=== PATIENT | female | born 1975 | race Caucasian/White ===

== ENCOUNTER → 2016-04-11 06:46 | Day surgery (SDC) | payer OTHER ==
[~2016-04-11 06:46] MED LIST: Buffered Lidocaine 1% SYR 3ML* 3 ML/SYR SYRINGE INTRADERM ONE; Buffered Lidocaine 1% SYR 3ML* 3 ML/SYR SYRINGE ONE; Bupivacaine 0.5% SDV PF* 30 ML VIAL ONE; Dexamethasone IV* 4 MG/ML 1 ML (4 MG) IV SLOW PU ONE; Dexamethasone IV* 4 MG/ML 1 ML (4 MG) ONE; DiMENhydriNATE IV* 50 MG/ML VIAL IV PUSH PRN; Famotidine IV* 10 MG/ML 2 ML (20 mg) IV ONE; Famotidine IV* 10 MG/ML 2 ML (20 mg) ONE; HYDROmorphone INJ* 1 MG/ML CARPUJECT SYRINGE ONE; Lidocaine 1% INJ* 10 MG/ML 30 ML SDV ONE; Midazolam* 1 MG/ML 2 ML VIAL (2 MG) ONE; ceFAZolin 2 GM PREMIX (*) 2 GM/50 ML BAG IVPB ONE; fentaNYL* 50 MCG/ML 2 ML VIAL (100 MCG VIAL) ONE; oxyCODONE TAB* 5 MG TAB ONE
[2016-04-11] MEDS: fentaNYL* 50 MCG/ML 2 ML VIAL (100 MCG VIAL) IV PRN ×4 (10:16→10:52)
[2016-04-11] MEDS: HYDROmorphone INJ* 1 MG/ML CARPUJECT SYRINGE IV PRN ×4 (10:18→10:58)
[2016-04-11 11:38] VITALS: BP 108/84
--- NOTE | 2016-04-11 13:49 | RAD ---
INDICATION: Trimalleolar fracture. COMPARISON: February 26, 2016 FINDINGS: 9 seconds of fluoroscopy were provided for the orthopedics department. Fluoroscopic spot imaging of the right ankle were obtained for operative control and show interval removal of the cortical plate and screws about the fibula and placement of 2 orthopedic screws at the level of the medial malleolus . CPT II Codes: 6045F (fluoro time doc)
--- NOTE | 2016-04-11 22:35 | OP ---
DATE OF OPERATION: 04/11/16 - SDS DATE OF : 73 SURGEON: Erasmo Leong MD POWER PLANT ENGINEER: MYKEL Quiñones ANESTHESIOLOGIST: Low Marks MD ANESTHESIA: General PRE-OP DIAGNOSES: Right painful hardware fibula, SPN neuroma, and nonunion medial malleolus. POST-OP DIAGNOSES: Right painful hardware fibula, SPN neuroma, and nonunion medial malleolus. OPERATIVE PROCEDURE: Removal of hardware, right fibula; decompression SPN nerve ; and ORIF, right medical malleolus. DESCRIPTION OF PROCEDURE: The patient was taken to the operating room, where a longitudinal incision was made over the distal fibula. We located the head of the small fragment screws to remove with appropriate screwdriver as well as the plate. In the anterior flap, the SPN nerve was intact, but entrapped and some scar at this level. Using a small Joshua scissors, we dissected around the nerve performing a neurolysis at this level and decompressing the fascia proximally. This wound was then irrigated and closed with 2-0 Vicryl and kike. Medially, a 5 cm incision was made over the medial malleolus. I exposed the anterior aspect of the ankle joint at the axilla by reflecting the capsule anteriorly. The nonunion was taken down with a [place] elevator, fibrous debris removed and then a small power jose luis used to freshen the bone surfaces. We then pinned the medial malleolus with paired 4.0 mm cancellous screws over washers, good compression was obtained and the x-ray verified satisfactory position of the hardware. We then irrigated the medial wound closing with Vicryl and kike and a compression dressing plaster was then applied. [id number]/[facility] #: [id number] [facility]
== END | disposition home or self-care (01) ==
LOC: OR 06:46
PROVIDERS: ATTEND Orthopaedic Surgery
DX: T84.84XA Pain due to internal orthopedic prosthetic devices, implants and grafts, initial encounter (principal); Y79.3 Surgical instruments, materials and orthopedic devices (including sutures) associated with adverse incidents; Y92.9 Unspecified place or not applicable; G57.31 Lesion of lateral popliteal nerve, right lower limb; S82.51XA Displaced fracture of medial malleolus of right tibia, initial encounter for closed fracture; W00.2XXA Other fall from one level to another due to ice and snow, initial encounter; Y93.9 Activity, unspecified; Y92.89 Other specified places as the place of occurrence of the external cause; Y99.0 Civilian activity done for income or pay; I10 Essential (primary) hypertension; F17.210 Nicotine dependence, cigarettes, uncomplicated; F41.9 Anxiety disorder, unspecified
CPT/HCPCS: 76000; 88300; A9270-GY; C1713; C1776; J0690; J1100; J1170; J2250; J3010

== ENCOUNTER 2016-06-06 23:41 | Emergency (ER) | payer OTHER ==
[2016-06-06 23:47] VITALS: BP 124/82
[2016-06-07] MEDS ORDERED: oxyCODONE/Acetamin 5/325 MG* TAB PO ONE ×2 (00:53→00:59)
--- NOTE | 2016-06-07 07:51 | RAD ---
INDICATION: Right ankle reinjury, previous fracture. COMPARISON: Comparison is made with prior x-ray studies of the right ankle from September 02, 2015, February 26, 2016 and June 02, 2016. TECHNIQUE: 3 views of the right ankle were obtained. FINDINGS: There is diffuse soft tissue swelling present. Postsurgical changes are noted in the distal fibula. There has been removal of a metallic plate and multiple surgical screws. There are 2 surgical screws spanning a chronic fracture of the medial malleolus. One of the surgical screws is fractured and unchanged from the prior study. No new osseous fracture is seen. Joint spaces appear maintained. IMPRESSION: POSTSURGICAL CHANGES AND CHRONIC FRACTURE OF THE MEDIAL MALLEOLUS TRANSFIXED WITH 2 SURGICAL SCREWS. ONE OF THE SURGICAL SCREWS IS FRACTURED AND UNCHANGED FROM THE PRIOR EXAM. NO NEW OSSEOUS FRACTURE IS SEEN.
--- NOTE | 2016-06-08 01:42 | ED ---
Lower Extremity - HPI Summary HPI Summary: Patient with recent hx of multiple left ankle fractures arrives s/p fall in the shower with left ankle pain. She states she sustained a tri-mal fracture several months ago with repaif. After re-injuring the ankle, xray showed one of the screws was broke. She is to follow up tmw with a CT scan, but arrives today after re-injuring it again. She has been on crutches since the original injury. Today, ankle is swollen with ecchymosis over lateral L ankle. Denies numbness or tingling. Pulses intact bilaterally. - History of Current Complaint Chief Complaint: EDExtremityLower Stated Complaint: RIGHT FOOT PAIN Time Seen by Provider: 06/06/16 23:59 Hx Obtained From: Patient Hx Last Menstrual Period: ALL MONTH OF SEPTEMBER Mechanism Of Injury: Fall From A Standing Position Onset of Pain: Immediate Onset/Duration: Minutes Severity Initially: Moderate Severity Currently: Moderate Pain Intensity: 7 Pain Scale Used: 0-10 Numeric Timing: Constant Location: Is Discrete @ - left ankle - lateral side Character Of Pain: Sharp Associated Signs And Symptoms: Positive: Swelling, Bruising Aggravating Factor(s): Standing, Ambulation Alleviating Factor(s): Rest Able to Bear Weight: No - Risk Factors Gout Risk Factors: Age Over 40 DVT Risk Factors: Other: - recent injury Septic Arthritis Risk Factor: Pre-existing Joint Disease - Allergies/Home Medications Allergies/Adverse Reactions: Allergies Allergy/AdvReac Type Severity Reaction Status Date / Time Morphine AdvReac Pain Verified 04/11/16 07:09 PMH/Surg Hx/FS Hx/Imm Hx Previously Healthy: Yes Endocrine/Hematology History: Denies: Hx Anticoagulant Therapy, Hx Diabetes, Hx Thyroid Disease Cardiovascular History: Reports: Hx Hypertension - ON MEDICATION FOR Denies: Hx Congestive Heart Failure, Hx Pacemaker/ICD, Other Cardiovascular Problems/Disorders Respiratory History: Denies: Hx Asthma, Hx Chronic Obstructive Pulmonary Disease (COPD), Hx Lung Cancer, Other Respiratory Problems/Disorders GI History: Denies: Hx Gall Bladder Disease, Hx Gastrointestinal Bleed, Hx Ulcer, Hx Urosepsis, Other GI Disorders History: Denies: Hx Kidney Stones, Hx Renal Disease Comment Only: Other Problems/Disorders - OVARIAN CYSTS LT OVARY REMOVED Sensory History: Denies: Hx Contacts or Glasses, Hx Hearing Aid Opthamlomology History: Denies: Hx Contacts or Glasses Neurological History: Denies: Hx Dementia, Hx Migraine, Hx Seizures, Hx Transient Ischemic Attacks (TIA), Other Neuro Impairments/Disorders Psychiatric History: Reports: Hx Anxiety - PRN XANAX FOR Denies: Hx Depression, Hx Panic Disorder, Hx Schizophrenia, Hx Bipolar Disorder, Hx Substance Abuse - Surgical History Surgery Procedure, Year, and Place: TRIMALLEOLAR FX RIGHT ANKLE REPAIR 07/24. 1994 LT OOPHERECTOMY. [id number] Gall bladder out;2005 tubal ligation; 1998 bilat ankles TENDON LENGHTENING at age 6. HYSTERECTOMY 2014 Hx Anesthesia Reactions: No - Immunization History Date of Tetanus Vaccine: 2011 Date of Influenza Vaccine: 2014 Infectious Disease History: No Infectious Disease History: Denies: Hx Clostridium Difficile, Hx Hepatitis, Hx Human Immunodeficiency Virus (HIV), Hx of Known/Suspected MRSA, Hx Shingles, Hx Tuberculosis, Hx Known/ Suspected VRE, Hx Known/Suspected VRSA, History Other Infectious Disease, Traveled Outside the [place] in Last 30 Days - Family History Known Family History: Positive: None, Cardiac Disease - [place] - Social History Occupation: Unemployed Lives: With Family Alcohol Use: Occasionally Alcohol Amount: 1-2 PER WEEK Substance Use Type: Reports: None Hx Tobacco Use: Yes Smoking Status (MU): Heavy Every Day Tobacco Smoker Type: Cigarettes Amount Used/How Often: 1/2-1 PPD X 15 +YEARS Length of Time of Smoking/Using Tobacco: 20 years Have You Smoked in the Last Year: Yes Review of Systems Constitutional: Negative Cardiovascular: Negative Respiratory: Negative Positive: no symptoms reported, see HPI Positive: Arthralgia - left ankle pain - chronic d/t injury Positive: Bruising - ecchymosis over ATFL Neurological: Negative Positive: Anxious All Other Systems Reviewed And Are Negative: Yes Physical Exam - Summary Physical Exam Summary: Thorough physical exam was performed, focusing on ankle special tests. Pain on palpation over lateral aspect and superior aspect of ankle over ATFL and deltoid ligaments. No pain on palpation over medial side. Due to patient pain around injury, physical exam was limited. Unable to perform anterior drawer test or talar tilt test d/t pain. Burnett test negative. Limited ROM. Dorsiflexion, great toe extension and plantar flexion intact however limited. No pain on palpation over medial or lateral lower extremity. No pain with knee flexion. Pulses intact bilaterally. No temperature change or pallor noted bilaterally. Ecchymosis and swelling noted on lateral aspect. No lesion or disruption of skin is seen. Unable to bear weight. Triage Information Reviewed: Yes Vital Signs On Initial Exam: Initial Vitals Temp Pulse Resp BP Pulse Ox 98.0 F 64 16 124/82 100 06/06/16 23:43 06/06/16 23:43 06/06/16 23:43 06/06/16 23:43 06/06/16 23:43 Vital Signs Reviewed: Yes Appearance: Positive: Well-Nourished, Pain Distress Skin: Positive: Warm, Skin Color Reflects Adequate Perfusion Eyes: Positive: Normal, EOMI, RICH Neck: Positive: Nontender Respiratory/Lung Sounds: Positive: Clear to Auscultation, Breath Sounds Present Cardiovascular: Positive: Normal Diagnostics - Vital Signs Vital Signs Temp Pulse Resp BP Pulse Ox 06/06/16 23:43 98.0 F 64 16 124/82 100 - Laboratory Lab Statement: Any lab studies that have been ordered have been reviewed, and results considered in the medical decision making process. Lower Extremity Course/Dx - Course Course Of Treatment: Based on Harmon Ankle Rules, patient sent to imaging. Xray negative for new fracture or other acute findings. Patient with multiple previous fractures with placement of 2 screws with 1 broken. Soft tissue swelling noted over the lateral aspect of the ankle. Medial and lateral distal lower extremity without pain and x-rays show no widening of the ankle joint regarding low suspicion for Maisonneuve fx. Patient will follow up with CT scan as scheduled tomorrow. Ankle was ligia wrapped to patient comfort to allow for immobilization for this period of time. Patient given orthopedic follow up for 2 days. Encouraged Ibuprofen 600mg three times daily with meals for pain. Return precautions given. Educated patient regarding ankle injuries and healing time and the possibility of further evaluation and imaging as orthopedist sees fit. Patient has oxycodone at home for pain medication. - Diagnoses Differential Diagnosis/HQI/PQRI: Positive: Compartment Syndrome, Fracture ( Closed), Fracture (Open), Strain Provider Diagnoses: Left ankle injury Discharge - Discharge Plan Condition: Stable Disposition: HOME Referrals: Ethan Juarez MD [Primary Care Provider] - Additional Instructions: Follow up for CT tomorrow. Follow up with your physician on Monday. Discharge: Crutches for ambulation. Ibuprofen 600mg three times daily with meals for pain. Take on opposite schedule of oxycodones. Follow up with orthopedic physician. If numbness, tingling, decreased sensation, increased pain, temperature changes or pallor noted in toes, come back to ER immediately. Protect the area. For your comfort level, do not bear weight, pull or push until you can injury is somewhat healed. This may involve the need for immobilization or crutches for a period of time. Rest the involved area, but not too long. You may need to be off your injury for some time to allow for healing, however excessive immobilization of joints can lead to stiffness and delay healing time. Early mobilization is encouraged if it is pain-free. Ice. Not directly on the skin. Cover with a towel. Apply ice no more than 30 minutes at a time Compression: You may use and keep an ligia wrap bandage over the injury to decrease swelling. Again, this should be limited and be taken off periodically to encourage early range of motion and mobilization. Elevate: Try to elevate the injured area above the heart whenever possible.
== END 2016-06-07 01:17 | disposition home or self-care (01) ==
LOC: ED 23:41
DX: M25.571 Pain in right ankle and joints of right foot (principal); M79.671 Pain in right foot; F17.210 Nicotine dependence, cigarettes, uncomplicated; I10 Essential (primary) hypertension; Z88.5 Allergy status to narcotic agent; S82.51XS Displaced fracture of medial malleolus of right tibia, sequela; W19.XXXA Unspecified fall, initial encounter; Y93.E1 Activity, personal bathing and showering; Y92.9 Unspecified place or not applicable
CPT/HCPCS: 99282; A9270-GY

== ENCOUNTER → 2016-07-18 09:43 | Day surgery (SDC) | payer OTHER ==
--- NOTE | 2016-07-15 17:30 | HP ---
PREOPERATIVE HISTORY AND PHYSICAL: DATE OF ADMISSION: 07/18/16 PROVIDER: Dr. Erasmo Leong. CHIEF COMPLAINT: Ongoing right ankle pain. HISTORY OF PRESENT ILLNESS: Paulina is a 40-year-old female who has been followed by Dr. Leong for ongoing right ankle pain. She recently underwent revision of a medial malleolus fracture nonunion. She was found to have broken screws at her most recent appointment and again a nonunion. She has elected to proceed with revision of medial malleolar fracture fixation. PAST MEDICAL HISTORY: Hypertension, complex regional pain syndrome. PAST SURGICAL HISTORY: Right ankle medial malleolus ORIF, right ankle lateral malleolus ORIF. She reports no complications with anesthesia with those procedures. CURRENT MEDICATIONS: 1. Oxycodone 5 mg 1 tab every 4 to 6 hours as needed for pain. 2. Ibuprofen 800 mg 1 tab p.o. t.i.d. p.r.n. pain. 3. Lisinopril 5 mg one p.o. q. day. 4. Chantix 1 mg as directed. 5. Nifedical XL 30 mg 1 p.o. q. day. 6. Alprazolam 0.5 mg 1 p.o. t.i.d. p.r.n. 7. Atenolol 25 mg 1 p.o. q. day. ALLERGIES: MORPHINE; she reports that MORPHINE makes her pain worse. SOCIAL HISTORY: The patient is not currently working. She smokes half a pack of cigarettes per day. She does not consume alcohol. She does not exercise regularly. REVIEW OF SYSTEMS: Constitutional: Negative for recent hospitalization, fevers , chills, night sweats, or weight loss. Head: Negative for headache, lightheadedness, or balance problems. Cardiovascular: Negative for chest or arm pain with exertion, history of heart attack, heart murmur. Positive for high blood pressure. Negative for embolism, or deep vein thrombosis. Respiratory: Negative for chronic cough, shortness of breath with exertion, asthma, or COPD. Gastrointestinal: Negative for heartburn, nausea, vomiting, diarrhea, constipation, or GERD. Genitourinary: Negative for nighttime urination, frequency of urination, urinary tract infections or kidney problems. Musculoskeletal: Positive for ankle fracture. Negative for chronic back pain. Skin: Negative for rashes, lesions, lumps, or sores. Neurologic: Negative for seizure, stroke, epilepsy, or depression. Positive for anxiety. Endocrine: Negative for diabetes or thyroid problems. Hematology: Negative for easy bleeding, bruising, or anemia. PHYSICAL EXAMINATION GENERAL: She is a well-developed, well-nourished female, in no acute distress at rest. She is alert and oriented x3 with appropriate mood and affect. VITAL SIGNS: The patient is 5 feet 7 inches, 180 pounds. Blood pressure 140/ 115, pulse of 100, respirations 20, temperature 97.6. HEENT: Normocephalic, atraumatic. Hearing and vision are grossly intact. NECK: Her trachea is midline. RESPIRATORY: Lungs clear to auscultation bilaterally. No wheezes, rales, or rhonchi. CARDIOVASCULAR: Regular rate and rhythm. No murmurs, rubs, or gallops. Normal S1, S2. ABDOMEN: Soft, nondistended, nontender. Normal bowel sounds. EXTREMITIES: Exam of the right lower extremity, incision is well healed to the medial aspect of ankle. She continues to have some persistent swelling. She is tender to palpation over the medial malleolus over the dorsum of her foot. She has limited hindfoot range of motion secondary to stiffness. Sensation to light touch is intact. She has 2+ dorsalis pedis pulse. IMPRESSION: Right ankle medial malleolus fracture nonunion with broken screws. PLAN: The patient is to undergo right ankle revision fixation of medial malleolus by Dr. Leong on 07/18/16. The risks, benefits, and postoperative course were discussed with the patient at length. She is understanding. She needs to be strictly nonweightbearing after her surgery. All of her questions were answered to her full satisfaction. We will follow up the patient in the postoperative phase. MYKEL WATERS [id number]/[facility] #: [id number] FABIANA
[~2016-07-18 09:43] MED LIST changes: +Acetaminophen IV 1GM/100ML * 1,000 MG/100 ML VIAL IVPB ONE; +Acetaminophen IV 1GM/100ML * 100 ML ONE; -Buffered Lidocaine 1% SYR 3ML* 3 ML/SYR SYRINGE INTRADERM ONE; -Buffered Lidocaine 1% SYR 3ML* 3 ML/SYR SYRINGE ONE; +Buffered Lidocaine 1% SYRIN* 3 ML/SYR SYRINGE INTRADERM ONE; -DiMENhydriNATE IV* 50 MG/ML VIAL IV PUSH PRN; -HYDROmorphone INJ* 1 MG/ML CARPUJECT SYRINGE ONE; +HYDROmorphone* 1 MG/ML 1 ML SYR IV SLOW PU PRN; +HYDROmorphone* 1 MG/ML 1 ML SYR ONE; +Ketorolac INJ* 30 MG/ML 1 ML VIAL ONE; -Lidocaine 1% INJ* 10 MG/ML 30 ML SDV ONE; +Lidocaine 2% PF* 5 ML VIAL ONE; -Midazolam* 1 MG/ML 2 ML VIAL (2 MG) ONE; +Midazolam* 1 MG/ML 5 ML VIAL (5 MG) ONE; +Ondansetron INJ* 2 MG/ML VIAL ONE; +PROCHLORPERAZINE INJ 5 MG/ML 2 ML VIAL IV PRN; +Propofol* 10 MG/ML 20 ML BTL IV PUSH ONE; -ceFAZolin 2 GM PREMIX (*) 2 GM/50 ML BAG IVPB ONE; +ceFAZolin 2 GM PREMIX(*) 2 GM/50 ML BAG IVPB ONE; +fentaNYL* 50 MCG/ML 5 ML VIAL (250 MCG VIAL) ONE; +oxyCODONE TAB* 5 MG TAB PO ONE; +oxyCODONE/Acetamin 5/325 MG* TAB ONE
[2016-07-18] MEDS: oxyCODONE/Acetamin 5/325 MG* TAB PO PRN ×2 (11:50→11:53)
[2016-07-18] MEDS: fentaNYL* 50 MCG/ML 2 ML VIAL (100 MCG VIAL) IV PRN ×5 (11:50→12:16)
[2016-07-18] MEDS: HYDROmorphone* 1 MG/ML 1 ML SYR IV SLOW PU PRN ×2 (12:24→12:39)
[2016-07-18 16:23] VITALS: BP 128/76
--- NOTE | 2016-07-19 12:52 | OP ---
DATE OF OPERATION: 07/18/16 - [facility] DATE OF : 73 ATTENDING SURGEON: Erasmo Leong MD GREENHOUSE SUPERINTENDENT: Ember Husain PA-C ANESTHESIOLOGIST: Donn Parikh MD ANESTHESIA: General PRE-OP DIAGNOSIS: Failure fixation nonunion right medial malleolus fracture. POST-OP DIAGNOSIS: Failure fixation nonunion right medial malleolus fracture. OPERATIVE PROCEDURE: Revision of right medial malleolus fracture fixation. DESCRIPTION OF PROCEDURE: The patient was taken to the operating room where a longitudinal incision was made over the medial malleolus. Anterior and posterior flap was raised to allow visualization of the hardware which was removed with small fragment screw farm truck driver, the washers and take down the fracture fragment itself. Part of the broken small fragment screw was well within the distal tibia and was left alone. We used a power bur to freshen the bony surfaces for the repeat fixation. We fixed the bone firmly with a one- third tubular plate which was bent over in a hook style. Compression dressing applied from the medial side as well as the distal side. X-rays intraoperatively showed satisfactory alignment of the fracture fixation and the malleolus fracture. We irrigated thoroughly closing with Vicryl and kike and a compression dressing and plaster splint. [id number]/[facility] #: [id number] [facility]
--- NOTE | 2016-07-19 18:00 | RAD ---
CPT II Codes: 6045F INDICATION: Right ankle fixation TECHNIQUE: Intraoperative fluoroscopy was provided during right ankle ORIF. FINDINGS: 3 spot films depict plate and screw fixation overlying the tibial malleolus. Fluoroscopy time: 4 seconds IMPRESSION: As above.
== END | disposition home or self-care (01) ==
LOC: OR 09:43
PROVIDERS: ATTEND Orthopaedic Surgery
DX: S82.51XK Displaced fracture of medial malleolus of right tibia, subsequent encounter for closed fracture with nonunion (principal); F17.210 Nicotine dependence, cigarettes, uncomplicated; I10 Essential (primary) hypertension; G90.50 Complex regional pain syndrome I, unspecified; Y99.9 Unspecified external cause status; Y92.9 Unspecified place or not applicable
CPT/HCPCS: 76000; 87070; 87073; 87205; 88300; A9270-GY; C1713; C1776; J0690; J1100; J1170; J1885; J2250; J2405; J2704; J3010

== ENCOUNTER 2017-02-05 20:44 | Emergency (ER) | payer OTHER ==
[2017-02-05 20:51] VITALS: BP 134/99
--- NOTE | 2017-02-05 20:57 | UC ---
Complaint Female HPI - HPI Summary HPI Summary: 41 year old female presents with severe right cva and urinary frequency/ urgency. - History Of Current Complaint Chief Complaint: UCGU Stated Complaint: FREQUENT URINATION Time Seen by Provider: 02/05/17 20:53 Hx Obtained From: Patient Hx Last Menstrual Period: ALL MONTH OF SEPTEMBER Onset/Duration: Sudden Onset Timing: Lasting Hours Severity Initially: Moderate Severity Currently: Moderate - Allergies/Home Medications Allergies/Adverse Reactions: Allergies Allergy/AdvReac Type Severity Reaction Status Date / Time Morphine AdvReac Severe Pain Verified 02/05/17 20:51 Home Medications: Home Medications Metoprolol Tartrate TAB* [Lopressor TAB*] 02/05/17 [History] PMH/Surg Hx/FS Hx/Imm Hx Previously Healthy: Yes Other History Of: Negative For: Anticoagulant Therapy - Surgical History Surgical History: Yes Surgery Procedure, Year, and Place: TRIMALLEOLAR FX RIGHT ANKLE REPAIR 07/24. 1994 LT OOPHERECTOMY. [id number] Gall bladder out;2005 tubal ligation; 1998 , bilat ankles TENDON LENGHTENING at age 6. april 2016 right ankle repair , hysterectomy approx 2014. HYSTERECTOMY 2013 - Family History Known Family History: Positive: None, Cardiac Disease - [place] - Social History Alcohol Use: Occasionally Alcohol Amount: "couple times a month" Substance Use Type: None Smoking Status (MU): Current Every Day Smoker Type: Cigarettes Amount Used/How Often: 1 PPD Length of Time of Smoking/Using Tobacco: 20 years Have You Smoked in the Last Year: Yes Household Exposure Type: Cigarettes Review of Systems Constitutional: Negative Skin: Negative Eyes: Negative ENT: Negative Respiratory: Negative Cardiovascular: Negative Gastrointestinal: Negative Genitourinary: Dysuria, Frequency, Urgency Motor: Negative Neurovascular: Negative Musculoskeletal: Negative Neurological: Negative Psychological: Negative All Other Systems Reviewed And Are Negative: Yes Physical Exam Triage Information Reviewed: Yes Vital Signs: Initial Vital Signs Temp 36.7 C 02/05/17 20:48 Pulse 92 02/05/17 20:48 Resp 16 02/05/17 20:48 BP 134/99 02/05/17 20:48 Pulse Ox 99 02/05/17 20:48 Vital Signs Reviewed: Yes Eye Exam: Normal ENT Exam: Normal Dental Exam: Normal Neck exam: Normal Neck: Positive: 1 Respiratory Exam: Normal Cardiovascular Exam: Normal Abdomen Description: Positive: CVA Tenderness (R) Musculoskeletal Exam: Normal Neurological Exam: Normal Psychological Exam: Normal Skin Exam: Normal Complaint Female Dx - Differential Dx/Diagnosis Provider Diagnoses: right cva tenderness. urinary frequency. urinary urgency Discharge - Discharge Plan Condition: Stable Disposition: HOME Prescriptions: Sulfamethox/Trimethoprim DS* [Bactrim DS 800/160 TAB*] 1 tab PO BID #14 tab Patient Education Materials: Urinary Tract Infection in Women (ED) Referrals: Ethan Juarez MD [Primary Care Provider] -
[2017-02-05] MEDS ORDERED: cefTRIAXone VIAL(*) 1,000 MG VIAL ONE (21:11)
[2017-02-05] MEDS ORDERED: cefTRIAXone VIAL(*) 1,000 MG VIAL IM ONE (21:12)
--- NOTE | 2017-02-07 16:55 | ED ---
Progress - Progress Note Progress Note: NO CHANGE. Course/Dx - Diagnoses Provider Diagnoses: UTI (urinary tract infection)
== END 2017-02-05 21:30 | disposition home or self-care (01) ==
LOC: UCEAST 20:44
DX: R30.0 Dysuria (principal); R35.0 Frequency of micturition; R39.15 Urgency of urination; Z88.5 Allergy status to narcotic agent; F17.210 Nicotine dependence, cigarettes, uncomplicated
CPT/HCPCS: 81003; 87086; 96372; 99212; G0463; J0696

== ENCOUNTER 2017-02-22 18:40 | Emergency (ER) | payer OTHER ==
[2017-02-22 18:53] VITALS: BP 139/86
[2017-02-22] MEDS ORDERED: Ketorolac INJ* 60 MG/2 ML VIAL IM ONE (19:27)
--- NOTE | 2017-02-22 21:46 | UC ---
Susan Appiah Thomas, scribed for Shawn Escalante MD on 02/22/17 at 1926 . Ear Complaint HPI - HPI Summary HPI Summary: The pt is a 41 y/o F presenting to Urgent Care c/o right ear pain for the last two days that has worsened today. The pain radiates down her right-sided jaw. The pain is constant. The pain is rated 7/10. Pt denies fevers and chills. She has not been swimming the last two weeks. - History of Current Complaint Chief Complaint: UCEar Stated Complaint: EAR PAIN Time Seen by Provider: 02/22/17 19:12 Hx Obtained From: Patient Hx Last Menstrual Period: ALL MONTH OF SEPTEMBER Onset/Duration: Lasting Days - 2, Still Present, Worse Since - today Severity Currently: Moderate Pain Intensity: 7 Pain Scale Used: 0-10 Numeric Aggravating Factors: Nothing Alleviating Factors: Nothing Related History: Other (Noted In Comments) - Frequent Q-tip use, No recent swimming - Allergies/Home Medications Allergies/Adverse Reactions: Allergies Allergy/AdvReac Type Severity Reaction Status Date / Time Morphine AdvReac Severe Pain Verified 02/22/17 18:54 PMH/Surg Hx/FS Hx/Imm Hx Previously Healthy: No - NEGATIVE: [place], COPD Other History Of: Negative For: Anticoagulant Therapy - Surgical History Surgical History: Yes Surgery Procedure, Year, and Place: TRIMALLEOLAR FX RIGHT ANKLE REPAIR 07/24. 1994 LT OOPHERECTOMY. [id number] Gall bladder out;2005 tubal ligation; 1998 , bilat ankles TENDON LENGHTENING at age 6. april 2016 right ankle repair , hysterectomy approx 2015. HYSTERECTOMY 2013 - Family History Known Family History: Positive: Cardiac Disease - [place] - Social History Alcohol Use: Occasionally Alcohol Amount: "couple times a month" Substance Use Type: None, Marijuana Smoking Status (MU): Light Every Day Tobacco Smoker Type: Cigarettes Amount Used/How Often: 1 PPD Length of Time of Smoking/Using Tobacco: 20 years Have You Smoked in the Last Year: Yes Household Exposure Type: Cigarettes Review of Systems Constitutional: Other - NEGATIVE: fever ENT: Ear Ache - right Is Patient Immunocompromised?: No All Other Systems Reviewed And Are Negative: Yes Physical Exam Triage Information Reviewed: Yes Vital Signs: Initial Vital Signs Temp 98.6 F 02/22/17 18:50 Pulse 122 02/22/17 18:50 Resp 18 02/22/17 18:50 BP 139/86 02/22/17 18:50 Pulse Ox 98 02/22/17 18:50 Vital Signs Reviewed: Yes - Additional Comments VITAL SIGNS: Reviewed. GENERAL: Patient is a well developed and nourished female who is lying comfortable in the stretcher. Patient is not in any acute respiratory distress. HEAD AND FACE: Normocephalic EYES: PERRLA, EOMI x 2. EARS: Hearing grossly intact. The ear canal is swollen without any discharge. There is tenderness upon palpation. MOUTH: Oropharynx within normal limits. NECK: Supple, trachea is midline, no adenopathy, no JVD, no carotid bruit. CHEST: Symmetric, no tenderness at palpation LUNGS: Clear to auscultation bilaterally. No wheezing or crackles. CVS: Regular rate and rhythm, S1 and S2 present, no murmurs or gallops appreciated. ABDOMEN: Soft, non-tender. Bowel sounds are normal. No abdominal abnormal pulsations. EXTREMITIES: Full ROM in all major joints, no edema, no cyanosis or clubbing. NEURO: Alert and oriented x 3. No acute neurological deficits. Speech is normal and follows commands. SKIN: Dry and warm Ear Complaint Course/Dx - Course Course Of Treatment: The pt is a 41 y/o F presenting to Urgent Care c/o right ear pain for the last two days that has worsened today. Patient denies fevers and chills. She has not been swimming the last two weeks. The ear canal is swollen without any discharge. It is tender to palpation. The patient is diagnosed with otitis externa and given a prescription for Floxin. She was instructed not to use any more Q-tips. She will follow up with her primary care provider. - Differential Dx/Diagnosis Provider Diagnoses: Otitis externa. Discharge - Discharge Plan Condition: Stable Disposition: HOME Prescriptions: Ofloxacin 0.3% OTIC.CHANDRIKA* [Floxin 0.3% OTIC.CHANDRIKA*] 4 drop .SEE ORDER BID #1 [id number] Patient Education Materials: Otitis Externa (ED) Referrals: Ethan Juarez MD [Primary Care Provider] - 7 Days Additional Instructions: DO NOT USE Q-TIPS ON THE INSIDE OF YOUR EAR. DO NOT STICK ANYTHING INSIDE YOUR EARS. Follow up with your primary care provider at your appointment next week. Return to urgent care for any new or worsening symptoms. The documentation as recorded by the Susan motta Thomas accurately reflects the service I personally performed and the decisions made by me, Shawn Escalante MD.
== END 2017-02-22 19:45 | disposition home or self-care (01) ==
LOC: UCEAST 18:40
DX: H60.91 Unspecified otitis externa, right ear (principal); Z72.0 Tobacco use
CPT/HCPCS: 96372; 99212; G0463; J1885

== ENCOUNTER 2017-03-20 17:35 | Emergency (ER) | payer OTHER ==
[2017-03-20 18:18] VITALS: BP 150/103
--- NOTE | 2017-03-20 19:38 | UC ---
Skin Complaint HPI - HPI Summary HPI Summary: Pt presents with left great toe pain. She tells me that about 4 months ago she underwent a minor surgical procedure in the oil well logger's office to remove the skin folds from around the nails of her left and right great toes. She had this done due to reoccurring infections and paronychia. She has not had any issues until recently. Over the last two days she has had pain in her left great toe with redness and swelling. She denies fever, chills, SOB, chest pain, open wound , or drainage from the site. - History of Current Complaint Chief Complaint: UCLowerExtremity Time Seen by Provider: 03/20/17 19:38 Stated Complaint: TOE INJURY Hx Obtained From: Patient Hx Last Menstrual Period: ALL MONTH September Onset/Duration: Gradual Onset Onset Severity: Mild Current Severity: Mild Pain Intensity: 4 Pain Scale Used: 0-10 Numeric - Allergy/Home Medications Allergies/Adverse Reactions: Allergies Allergy/AdvReac Type Severity Reaction Status Date / Time Morphine AdvReac Severe Pain Verified 02/22/17 18:54 Review of Systems Constitutional: Negative Skin: Other - Pain left great toe. Redness left great toe. Respiratory: Negative Cardiovascular: Negative Neurovascular: Negative Musculoskeletal: Negative All Other Systems Reviewed And Are Negative: Yes PMH/Surg Hx/FS Hx/Imm Hx Previously Healthy: Yes Cardiovascular History: Cardiac Disease, Hypertension Other History Of: Negative For: Anticoagulant Therapy - Surgical History Surgical History: Yes Surgery Procedure, Year, and Place: TRIMALLEOLAR FX RIGHT ANKLE REPAIR 07/24. 1994 LT OOPHERECTOMY. [id number] Gall bladder out;2005 tubal ligation; 1998 , bilat ankles TENDON LENGHTENING at age 6. april 2016 right ankle repair , hysterectomy approx 2015. HYSTERECTOMY 2013 - Family History Known Family History: Positive: None, Cardiac Disease - [place] - Social History Occupation: Employed Full-time Lives: With Family Alcohol Use: Occasionally Alcohol Amount: "couple times a month" Substance Use Type: None, Marijuana Smoking Status (MU): Light Every Day Tobacco Smoker Type: Cigarettes Amount Used/How Often: 1 PPD Length of Time of Smoking/Using Tobacco: 20 years Have You Smoked in the Last Year: Yes Household Exposure Type: Cigarettes Physical Exam Triage Information Reviewed: Yes Appearance: Well-Appearing, Well-Nourished Vital Signs: Initial Vital Signs Temp 97.9 F 03/20/17 18:15 Pulse 106 03/20/17 18:15 Resp 18 03/20/17 18:15 BP 150/103 03/20/17 18:15 Pulse Ox 100 03/20/17 18:15 Vital Signs Reviewed: Yes Respiratory: Positive: Chest non-tender, Lungs clear Cardiovascular: Positive: RRR, Pulses Normal Musculoskeletal: Positive: Strength Intact, ROM Intact, No Edema Psychological: Positive: Age Appropriate Behavior Skin: Positive: Other - Left great toe: Mild erythema on the dorsal medial aspect of the left great toe along the nail. TTP medial > lateral. No discharge was able to be expressed. Mild edema medial > lateral. Course/Dx - Course Course Of Treatment: Paronychia left great toe. I advised her to schedule a follow up with her oil well logger. Rx for Keflex for mild cellulitis and paronychia. Try a lidocaine cream for pain relief. High BP today - She did take her BP medication this morning but this is an ongoing issue with her. Her PCP is aware and she has had an extensive workup including an ECG, stress test, and echos - per pt. Today she has no dizziness, headaches, or vision changes. I advised her to follow up with her PCP within 2 weeks. - Differential Diagnoses - Skin Complaint Differential Diagnoses: Cellulitis, MRSA - Diagnoses Provider Diagnoses: Paronychia left great toe Discharge - Discharge Plan Condition: Stable Disposition: HOME Prescriptions: Cephalexin CAP* [Keflex CAP*] 500 mg PO BID #20 cap Lidocaine 2% JELLY* 1 applic TOPICAL BID PRN #1 tube PRN Reason: Pain Patient Education Materials: Paronychia (ED) Referrals: Ethan Juarez MD [Primary Care Provider] - 1 Week Additional Instructions: If you develop a fever, SOB, chest pain, new or worsening symptoms - please call your PCP or go to the ED. Your blood pressure was high at todays visit. Please see your primary provider within 2 weeks for recheck and re-evaluation. Continue with salt water soaks of the toe. Please schedule a follow up with your PCP or new oil well logger within 7-10 days for further evaluation.
== END 2017-03-20 20:11 | disposition home or self-care (01) ==
LOC: UCEAST 17:35
DX: L03.032 Cellulitis of left toe (principal); I10 Essential (primary) hypertension; F17.210 Nicotine dependence, cigarettes, uncomplicated; Z88.5 Allergy status to narcotic agent
CPT/HCPCS: 99212; G0463

== ENCOUNTER 2017-05-11 14:44 | Observation (INO) | payer OTHER ==
--- OUTSIDE RECORDS SUMMARY | 2017-05-11 15:37 | XMS REPORT ---
:1975 External Reference #:[id number] Author Organization [facility] Address [address] [address] Phone [phone] Care Team Providers Name Role Phone Ethan Juarez MD Primary Care Physician Unavailable Payers Type Date Identification Numbers Payment Provider Subscriber Commercial Policy Number: [id number] [employer] Medicaid Izabela Wagner PayID: [id number] [address] [address] [place] [address] Workers Compensation Effective: Policy Number: State Insurance Izabela A 2016 [id number] Fund Candea Onset: 2015 Group Number: [id number] [address] [address] Group Name: [id number] [place] [address] PayID: [facility] Workers Compensation Expires: Policy Number: State Insurance Izabela A 2016 [id number] Fund Candea Onset: 2015 Group Name: [id number] [address] [address] PayID: [place] [address] Workers Compensation Effective: Policy Number: State Insurance Izabela A 2015 [id number] Fund Candea Expires: 2015 Group Name: [id number] [address] [address] Onset: 2015 PayID: [id number] [place] [address] Workers Compensation Expires: Policy Number: State Insurance Izabela A 2015 [id number] Fund Candea Onset: 2015 Group Name: [id number] [address] [address] PayID: [place] [address] Problems Date Description Provider Status Onset: 07/16/2015 Closed bimalleolar fracture Alirio Segal M.D. Active Onset: 02/17/2016 Complex regional pain syndrome, type Alirio Segal M.D. Active II, lower limb Family History Date Family Member(s) Problem(s) Comments General sister has cancer Father due to Prostate Cancer () Mother due to Brain Cancer () Mother due to Lung Cancer () Social History Type Date Description Comments Marital Status Single Lives With Male Partner Occupation Unemployed Cigarette Use Heavy tobacco smoker (more than 10 cigarettes/day) Cigarette Use 1 PPD ETOH Use Occasionally consumes alcohol Smoking Heavy tobacco smoker (more than 10 cigarettes/day) Recreational Drug Use Denies Drug Use Daily Caffeine Consumes on average 2 cups of regular coffee per day Exercise Type/Frequency Does not exercise Allergies, Adverse Reactions, Alerts Date Description Reaction Status Severity Comments 07/16/2015 Morphine Pain increases active 07/16/2015 NKDA inactive Medications Medication Date Status Form Strength Qnty SIG Indications Ordering Provider Ibuprofen 05/11/ Active Tablets 800mg 60tabs one two S82.51xK Erasmo 2018 times a day Salo, as needed M.DSudhir Neurontin 10/28/ Active Capsules 300mg 45caps 1by mouth Erasmo 2016 every night Salo at bedtime, Michael Knee Scooter 04/13/ Active Misc 1units Please use Erasmo [address] Salo Leong M.D. Ibuprofen 07/15/ Active Tablets 800mg 90tabs take 1 Erasmo 2015 tablet Salo, three times M.D. a day as needed Lisinopril / Active Tablets 5mg 1 by mouth Unknown 0000 every day Nifedical XL / Active Tablets ER 30mg 1 by mouth Unknown 0000 24HR every day Alprazolam / Active Tablets 0.25mg 1 po qid Unknown 0000 Dispers prn Rare use Atenolol / Active Tablets 25mg 1 by mouth Unknown 0000 every day Oxycodone HCL 04/11/ Hx Capsules 5mg 40caps take 1 tab Erasmo 2016 - twice daily Salo 09/05/ as needed M.D. 2017 do not fill until 08/06/16 Neurontin 02/16/ Hx Capsules 100mg 120cap 3 by mouth Alirio 2015 - s every night Luzma 02/28/ at bedtime, M.DSudhir 2016 may decrease to two or one if too sedating, may increase to 6 if no effect Tramadol HCL 09/29/ Hx Tablets 50mg 30tabs 1-2 tabs by Alirio 2016 - mouth 6 Luzma, 11/16/ hours as M.D. 2016 needed pain Oxycodone HCL 08/09/ Hx Tablets 5mg 18tabs 1 tab by Karen 2016 - mouth every GaoMichael grant 4-6 hours 2016 as neededfor pain Oxycodone-Romulo / Hx Tablets 5-325mg 30tabs 1-2 by Alirio jean 0000 - mouth every Luzma, 11/16/ evening as M.D. 2015 needed for pain. Chantix / Hx Tablets 1mg 0.5-1mg as Unknown 0000 - directed 2016 Oxycodone-Romulo / Hx Tablets 5-325mg 60tabs 1-2 by Alirio jean 0000 - mouth three Luzma, 04/10/ times a day M.D. 2016 as needed for pain. Lyrica / Hx Capsules 100mg one twice a Unknown 0000 - day 2016 Vital Signs Date Vital Result Comment 05/11/2017 Height 67 inches 5'7" Heart Rate 68 /min BP Systolic 136 mmHg BP Diastolic 90 mmHg Respiratory Rate 20 /min Body Temperature 96.5 F Pain Level 6 12/01/2016 Height 67 inches 5'7" Weight 180.00 lb Respiratory Rate 16 /min Pain Level 3 BMI (Body Mass Index) 28.2 kg/m2 10/28/2016 Height 67 inches 5'7" Weight 180.00 lb BP Systolic 130 mmHg BP Diastolic 100 mmHg Body Temperature 98.7 F Pain Level 3 BMI (Body Mass Index) 28.2 kg/m2 09/23/2016 Height 67 inches 5'7" Weight 180.00 lb BP Systolic 124 mmHg BP Diastolic 90 mmHg Body Temperature 97.9 F Pain Level 0 BMI (Body Mass Index) 28.2 kg/m2 09/06/2016 Height 67 inches 5'7" Weight 184.75 lb with Heart Rate 76 /min BP Systolic Sitting 142 mmHg LA reg cuff BP Diastolic Sitting 88 mmHg LA reg cuff BMI (Body Mass Index) 28.9 kg/m2 Ejection Fraction 59% echo 11/23/11 08/19/2016 Height 67 inches 5'7" Weight 180.00 lb BP Systolic 128 mmHg BP Diastolic 82 mmHg Respiratory Rate 17 /min Body Temperature 97.4 F Pain Level 6 BMI (Body Mass Index) 28.2 kg/m2 07/26/2016 Height 67 inches 5'7" Weight 180.00 lb Heart Rate 88 /min BP Systolic 124 mmHg BP Diastolic 80 mmHg Respiratory Rate 16 /min Body Temperature 98.8 F Pain Level 9 BMI (Body Mass Index) 28.2 kg/m2 07/14/2016 Height 67 inches 5'7" Weight 180.00 lb Heart Rate 100 /min BP Systolic 140 mmHg didnt take medicine BP Diastolic 115 mmHg didnt take medicine Respiratory Rate 20 /min Body Temperature 97.6 F Pain Level 6 BMI (Body Mass Index) 28.2 kg/m2 06/08/2016 Height 67 inches 5'7" Weight 180.00 lb Heart Rate 80 /min BP Systolic Sitting 126 mmHg BP Diastolic Sitting 66 mmHg Respiratory Rate 18 /min Pain Level 6 BMI (Body Mass Index) 28.2 kg/m2 06/02/2016 Height 67 inches 5'7" Weight 180.00 lb Heart Rate 72 /min BP Systolic 130 mmHg BP Diastolic 82 mmHg Respiratory Rate 16 /min Pain Level 6 BMI (Body Mass Index) 28.2 kg/m2 05/11/2016 Height 67 inches 5'7" Weight 180.00 lb Pain Level 3 BMI (Body Mass Index) 28.2 kg/m2 04/19/2016 Height 67 inches 5'7" Weight 180.00 lb Body Temperature 97.5 F Pain Level 7 BMI (Body Mass Index) 28.2 kg/m2 03/25/2016 Height 67 inches 5'7" Weight 180.00 lb Respiratory Rate 18 /min Pain Level 5 BMI (Body Mass Index) 28.2 kg/m2 03/08/2016 Height 67 inches 5'7" Weight 180.00 lb Respiratory Rate 18 /min Pain Level 6 BMI (Body Mass Index) 28.2 kg/m2 02/17/2016 Height 67 inches 5'7" Weight 180.00 lb BP Systolic Sitting 130 mmHg BP Diastolic Sitting 100 mmHg Pain Level 7 10/17 persistent pain BMI (Body Mass Index) 28.2 kg/m2 11/18/2015 Height 67 inches 5'7" Weight 184.00 lb Heart Rate 64 /min BP Systolic Sitting 168 mmHg BP Diastolic Sitting 98 mmHg Respiratory Rate 16 /min Pain Level 1 BMI (Body Mass Index) 28.8 kg/m2 10/23/2015 Height 64 inches 5'4" Pain Level 1 09/30/2015 Height 64 inches 5'4" Weight 185.00 lb Heart Rate 76 /min Respiratory Rate 18 /min Pain Level 3 BMI (Body Mass Index) 31.8 kg/m2 09/02/2015 Height 64 inches 5'4" Weight 185.00 lb Pain Level 1 BMI (Body Mass Index) 31.8 kg/m2 08/12/2015 Height 64 inches 5'4" Weight 185.00 lb Pain Level 2 BMI (Body Mass Index) 31.8 kg/m2 07/29/2015 Height 64 inches 5'4" Weight 185.00 lb Body Temperature 98.2 F Pain Level 4 BMI (Body Mass Index) 31.8 kg/m2 07/16/2015 Height 64 inches 5'4" Weight 185.00 lb Heart Rate 82 /min BP Systolic 147 mmHg BP Diastolic 112 mmHg BMI (Body Mass Index) 31.8 kg/m2 Results Test Date Test Result H/L Range Note Laboratory test 07/18/2016 Surgical Pathology SEE RESULT BELOW 1 finding Wound Culture/Sensi 07/18/2016 Wound/Misc SEE RESULT BELOW 2 Culture-Gram Stain Laboratory test 07/18/2016 Anaerobic Culture SEE RESULT BELOW 3 finding Laboratory test 04/11/2016 Surgical Pathology SEE RESULT BELOW 4 finding CBC Auto Diff 05/06/2013 White Blood Count 12.9 10^3/uL High 4.8-10.8 Red Blood Count 5.01 10^6/uL 4.0-5.4 Hemoglobin 14.2 g/dL 12.0-16.0 Hematocrit 43 % 35-47 Mean Corpuscular Volume 86 fL 80-97 Mean Corpuscular Hemoglobin 28 pg 27-31 Mean Corpuscular HGB Conc 33 g/dL 31-36 Red Cell Distribution Width 14 % 10.5-15 Platelet Count 271 10^3/uL 150-450 Mean Platelet Volume 8 um3 7.4-10.4 Abs Neutrophils 6.5 10^3/uL 1.5-7.7 Abs Lymphocytes 5.0 10^3/uL High 1.0-4.8 Abs Monocytes 0.7 10^3/uL 0-0.8 Abs Eosinophils 0.5 10^3/uL 0-0.6 Abs Basophils 0.1 10^3/uL 0-0.2 Abs Nucleated RBC 0 10^3/uL Granulocyte % 50.1 % 38-83 Lymphocyte % 39.1 % 25-47 Monocyte % 5.8 % 1-9 Eosinophil % 4.2 % 0-6 Basophil % 0.8 % 0-2 Nucleated Red Blood Cells % 0 Comp Metabolic Panel 05/06/2013 Sodium 134 mmol/L 133-145 Potassium 4.1 mmol/L 3.5-5.0 Chloride 106 mmol/L 101-111 Co2 Carbon Dioxide 22.0 mmol/L 22-32 Anion Gap 6.0 mmol/L 2-11 Glucose 98 mg/dL 70-100 Blood Urea Nitrogen 12 mg/dL 6-24 Creatinine 0.60 mg/dL 0.50-1.40 BUN/Creatinine Ratio 20.0 8-20 Calcium 9.1 mg/dL 8.1-9.9 Total Protein 7.1 g/dL 6.2-8.1 Albumin 3.8 g/dL 3.6-5.4 Globulin 3.3 g/dL 2-4 Albumin/Globulin Ratio 1.2 1-3 Total Bilirubin 0.5 mg/dL 0.4-1.5 Alkaline Phosphatase 43 U/L 30-110 Alt 16 U/L 14-54 Ast 17 U/L 12-42 Egfr Non- 111.9 >60 Egfr 143.9 >60 5 Laboratory test finding 05/06/2013 Troponin I 0 ng/mL 0-0.06 6 C Reactive Protein < 0.5 mg/dL Less than 0.5 Urine Culture And 05/06/2013 Urine Culture (SEE NOTE) 7 Sensitivities Urine Microscopic 05/06/2013 Urine WBC 3+ (>30 /hpf) None Seen Urine RBC 1+ (<3 /hpf) None Seen Urine Mucus Present /lpf Absent Bacteria Urine 1+ None Seen Ua Comments Trichomonas Laboratory test finding 05/06/2013 Urine Negative Negative 8 Urinalysis 05/06/2013 Urine Color Yellow Urine Appearance Cloudy Urine Specific [place] 1.024 1.010-1.030 Urine Esterase 3+ Negative Urine Nitrate Negative Negative Urine Urobilinogen Negative E.U./dL Negative Urine Protein Trace mg/dL Negative Urine pH 6.5 5-9 Urine Blood Trace Negative Urine Ketones Negative mg/dL Negative Urine Bilirubin Negative Negative Urine Glucose Negative mg/dL Negative Affirm Vaginal Dna Probe 05/06/2013 Affirm Vaginal Dna Probe (SEE NOTE) 9 1 SEE RESULT BELOW Name: IZABELA WAGNER : [address]: Erasmo Leong MD Acct: [id number] Unit: [id number] AGE: 40 Location: OR Re07/18/16 SEX: F Status: DEP SDC SPEC: [id number] SIDRA: 07/18/16- [facility] DR: Erasmo Leong MD REQ: [id number] RECD: 07/18/161206 STATUS: SOUT _ ORDERED: LEVEL I FINAL DIAGNOSIS Ankle, right, hardware removal: Foreign body (orthopedic hardware) (Gross diagnosis). PRE-OPERATIVE DIAGNOSIS Right ankle revision GROSS DESCRIPTION The specimen is received fresh labeled, Right Ankle Hardware, and consists of two silver metallic partially threaded Korey-headed screws measuring 2.3 x 0.3 cm and 4.0 x 0.3 cm. Received separately in the same container are two 0.6 x 0.1 cm silver metallic circular washers. Per established hospital medical staff protocol, no tissue is submitted. Gross only. Signed (signature on file) Fili Naidu MD 1123 END OF REPORT * ML=Testing performed at Main Lab DEPARTMENT OF PATHOLOGY, [address] [place] [address] Fili Nadiu M.D. Director [facility] # [id number] 2 SEE RESULT BELOW Name: IZABELA WAGNER Owen : [address]: Erasmo Leong MD Acct: [id number] Unit: [id number] AGE: 40 Location: OR Re07/18/16 SEX: F Status: REG SDC SPEC: [id number] SIDRA: 07/18/16-1108 [facility] [address]: Erasmo Leong MD REQ: [id number] RECD: 07/18/16-1210 STATUS: RES [facility] DR: Ethan Juarez MD PC _ SOURCE: MISC SOURC SPDESC:ANKLE RHT ORDERED: Anaerobic Cult, Culture Stain Procedure Result Reported Site Anaerobic Culture PENDING Wound/Misc Gram Stain Final 07/18/16- 1436 ML No Neutrophils Observed 1+ Epithelial Cells No Organisms Seen Wound/Misc Culture PENDING * ML - MAIN LAB ([facility]) . END OF REPORT * ML=Testing performed at Main Lab DEPARTMENT OF PATHOLOGY, [address] [place] [address] Fili Naidu M.D. Director [facility] # [id number] 3 SEE RESULT BELOW Name: IZABELA WAGNER : [address]: Erasmo Leong MD Acct: [id number] Unit: [id number] AGE: 40 Location: OR Re07/18/16 SEX: F Status: DEP SDC SPEC: [id number] SIDRA: 07/18/16-110[address] [facility] [address]: Erasmo Leong MD REQ: [id number] RECD: 07/18/16 STATUS: KAYLI DUEÑAS DR: Ethan Juarez MD PC _ SOURCE: MISC SOURC SPDESC:ANKLE RHT ORDERED: Anaerobic Cult, Culture Stain Procedure Result Reported Site Anaerobic Culture Final 07/22/16- 0830 ML No Growth Day 4 Wound/Misc Gram Stain Final 07/18/16- 1431 ML No Neutrophils Observed 1+ Epithelial Cells No Organisms Seen Wound/Misc Culture Final 07/20/16- 0939 ML No Growth Day 2 * ML - MAIN LAB ([facility]) . END OF REPORT * ML=Testing performed at Main Lab DEPARTMENT OF PATHOLOGY, [address] [place] [address] Fili Naidu M.D. Director [facility] # [id number] 4 SEE RESULT BELOW Name: EKTAHUGOIZABELA : [address]: Erasmo Leong MD Acct: [id number] Unit: [id number] AGE: 40 Location: OR Re04/11/16 SEX: F Status: REG [facility] SPEC: [id number] SIDRA: 04/11/16- SUBM DR: Erasmo Leong MD REQ: [id number] RECD: 04/11/161056 STATUS: SOUT _ ORDERED: LEVEL I FINAL DIAGNOSIS Ankle, right, hardware removal: Foreign body (orthopedic hardware) (Gross diagnosis). PRE-OPERATIVE DIAGNOSIS Displaced trimalleolar fracture of right lower leg GROSS DESCRIPTION The specimen is received fresh labeled, Right Ankle Hardware, and consists of Korey-headed threaded silver metallic screws ranging from 1.3 x 0.6-0.3 cm to 2.0 x 0.6- 0.3 cm. Received separately in the same container is a 7.0 x 1.0 x 0.1 cm silver metallic convex centrally-perforated plate with the inscription reading [phone]. Per established hospital medical staff protocol, no tissue is submitted. Gross only. Signed (signature on file) Fiil Naidu MD 1512 END OF REPORT * ML=Testing performed at Main Lab DEPARTMENT OF PATHOLOGY, [address] [place] [address] Fili Naidu M.D. Director [facility] # [id number] 5 Because ethnic data is not always readily available, this report includes an eGFR for both -Americans and non- Americans. The National Kidney Disease Education Program (NKDEP) does not endorse the use of the MDRD equation for patients that are not between the ages of 18 and 70, are , have extremes of body size, muscle mass, or nutritional status, or are non- or non-. According to the National Kidney Foundation, irrespective of diagnosis, the stage of the disease is based on the level of kidney function: Stage Description GFR(mL/min/1.73 m(2)) 1 Kidney damage with normal or decreased GFR 90 2 Kidney damage with mild decrease in GFR 60-89 3 Moderate decrease in GFR 30-59 4 Severe decrease in GFR 15-29 5 Kidney failure <15 (or dialysis) 6 Reference Range and Interpretation: TnI (ng/mL) Interpretation Less Than 0.06 ng/mL Not supportive of diagnosis of [place] 0.06 - 0.50 ng/mL Indeterminate: suggest serial studies if clinically indicated. Greater than 0.5 ng/mL Consistent with diagnosis of [place] 7 RUN DATE: 05/08/13 [facility] LAB LIVE PAGE 1 RUN TIME: [address] [place], [place] [address] Specimen Inquiry Name: IZABELA WAGNER : [address]: Eldon Nair MD Acct: [id number] Unit: [id number] AGE: 37 Location: ED Re05/06/13 SEX: F Status: DEP ER SPEC: [id number] SIDRA: 05/06/13-[address]: Lupe HOGUE REQ: [id number] RECD: 05/06/13 STATUS: KALYI DUEÑAS DR: [facility] No Primary Care Phys,NOPCP _ SOURCE: URINE SPDESC: ORDERED: Urine Culture Procedure Result Verified Site Urine Culture Final 05/08/13- 1036 ML No Growth Day 2 (<1,000 CFU/mL) END OF REPORT * ML=Testing performed at Main Lab DEPARTMENT OF PATHOLOGY, [facility] [place] [id number] Fili Naidu M.D. Director [place] [employer] Permit #[id number] 8 If is still suspected, please repeat test after 48 to 72 hours. This test detects intact HCG only and is indicated for the early detection of . 9 RUN DATE: 05/07/13 [facility] LAB LIVE PAGE 1 RUN TIME: 1156 [facility] [employer] [address] [place], [place] [address] Specimen Inquiry Name: IZABELA WAGNER : [address]: Eldon Nair MD Acct: [id number] Unit: [id number] AGE: 37 Location: ED Re05/06/13 SEX: F Status: DEP ER SPEC: [id number] SIDRA: 05/06/13-[address]: Lupe HOGUE REQ: [id number] RECD: 05/06/13 STATUS: KAYLI DUEÑAS DR: [facility] Eldon Nair MD _ SOURCE: VAGINAL SPDESC: ORDERED: Affirm Procedure Result Verified Site Affirm Vaginal DNA Probe Final 05/07/13- 1156 ML Organism 1 POSITIVE TRICHOMONAS Organism 2 POSITIVE GARDNERELLA Organism 3 Negative Amy The presence of G. vaginalis, although suggestive, is not diagnostic for bacterial vaginosis. Results should be interpreted in conjunction with other clinical and laboratory data available. Women with vaginal discharge should be evaluated for risk factors of cervicitis and pelvic inflammatory disease, toxic shock syndrome (S.aureus), and if present, evaluated for organisms not included in this assay such as N. gonorrhoeae, C. trachomatis, Mobiluncus, Mycoplasma and/or Prevotella. Mixed infections may occur. The performance of this test on patient specimens collected during or immediately after antimicrobial therapy is unknown. The presence or absence of Amy species, G. vaginalis or T. vaginalis cannot be used as a test for therapeutic success or failure. END OF REPORT * ML=Testing performed at Main Lab DEPARTMENT OF PATHOLOGY, [address] [place] [address] Fili Naidu M.D. Director [facility] Permit #[id number] Procedures Date CPT Code Description Status 09/28/2016 71040 Treadmill Interp/Report Only Completed 09/28/2016 25710 Stress Test Supervsn W/Out I/R Completed 09/09/2016 85720 ECHO Transthoracic, Real-Time 2D With Doppler And Color Completed Flow 07/26/2016 34835 Short Leg Cast Completed 07/18/2016 91668 Repair Nonunion/Malunion Tibia W/O Graft Completed 07/18/2016 56252 Repair Nonunion/Malunion Tibia W/O Graft Completed 05/11/2016 00340 Rad Exam; Ankle Limited Completed 04/19/2016 19598 Short Leg Cast Completed 04/11/2016 20271 Removal Implant Deep Wire,Screw Nail,Nikolay Or Plate Completed 04/11/201648033 Removal Implant Deep Wire,Screw Nail,Nikolay Or Plate Completed 04/11/2016 86879 Repair Nonunion/Malunion Tibia W/O Graft Completed 04/11/2016 68437 Repair Nonunion/Malunion Tibia W/O Graft Completed 04/11/2016 22329 Repair Nonunion/Malunion Tibia W/O Graft Completed 04/11/2016 57751 Repair Nonunion/Malunion Tibia W/O Graft Completed 07/20/2015 02034 ORIF Open TX Distal Fibular FX Incl Internal Fixation Completed When Perfom 07/20/2015 35610 ORIF Open TX Distal Fibular FX Incl Internal Fixation Completed When Perfom 02/11/2010 36789 Rad Exam; Ankle Comp Completed Encounters Type Date Location Provider CPT E/M Dx Office Visit 12/01/2016 [facility] Erasmo Leong, 30818 S82.51xK 10:30a Of John Rodriguez Office Visit 10/28/2016 [facility] Erasmo Leong 54793 S82.51xK 10:45a Of John Rodriguez Office Visit 09/06/2016 [facility] [place] Palma [address] R07.9 2:30p Michael Byrd I10 F17.210 E66.9 R94.31 Office Visit 03/25/2016 11:10a [facility] Erasmo Leong 64377 S82.851S Of John Rodriguez G57.71 Office Visit 03/08/2016 9:30a [facility] Of Erasmo Leong 16394 G57.81 John Rodriguez G57.81 S82.851S S82.851S Office Visit 02/17/2016 3:15p [facility] Of Alirio Segal, 68786 G57.71 John Rodriguez G57.71 S82.851S S82.851S G57.72 Office Visit 11/18/2015 11:20a [facility] Jessica Yeung 42396 S82.851D Of John ANP-C Z47.89 Office Visit 10/23/2015 2:20p [facility] Jessica Yeung 15943 S82.851D Of John ANP-C S82.851D Office Visit 07/16/2015 11:00a [facility] Alirio Segal 26404 S82.851A Of John Rodriguez Office Visit 02/11/2010 9:00a [facility] Mohinder [place] M.D. 54161 726.79 Of C.M.Crissy Plan of Care 05/11/2017 - Erasmo Leong M.D.S82.51xK Disp fx of med malleolus of r tibia, 7thKNew Medication:Ibuprofen 800 mgNew Xrays:Ankle Right 3+VWST84.84xA Pain due to internal orthopedic prosth dev/grft, initNew Xrays:Ankle Right 3+VWS
--- OUTSIDE RECORDS SUMMARY | 2017-05-11 15:37 | XMS REPORT ---
:1975 External Reference #:[id number] Author Organization [facility] Address [address] [address] Phone [phone] Care Team Providers Name Role Phone Ethan Juarez MD Primary Care Physician Unavailable Payers Type Date Identification Numbers Payment Provider Subscriber Commercial Policy Number: [id number] [employer] Medicaid Izabela Wagner PayID: [id number] [address] [address] [place] [address] Workers Compensation Effective: Policy Number: State Insurance Izabela A 2016 [id number] Fund Candea Onset: 2015 Group Number: [id number] [address] [address] Group Name: [id number] [place] [address] PayID: [facility] Workers Compensation Expires: Policy Number: State Insurance Izabela A 2016 [id number] Fund Candea Onset: 2015 Group Name: [id number] [address] [address] PayID: [place] [address] Workers Compensation Effective: Policy Number: State Insurance Izabela A 2015 [id number] Fund Candea Expires: 2015 Group Name: [id number] [phone] [address] [address] Onset: 2015 PayID: [id number] [place] [address] Workers Compensation Expires: Policy Number: State Insurance Izabela A 2015 [id number] Fund Candea Onset: 2015 Group Name: [id number] [address] [address] PayID: [place] [address] Problems Date Description Provider Status Onset: 07/16/2015 [...] Erasmo 2016 every night Salo at bedtime, Micheal Knee Scooter 04/13/ Active Misc 1units Please [...] 1 tab Erasmo 2016 - twice daily Saol 09/05/ as needed M.D. 2017 do not [...] Color Yellow Urine Appearance Cloudy Urine Specific Williams 1.024 1.010-1.030 Urine Esterase 3+ Negative Urine [...] [address]: Erasmo Leong MD Acct: [id number] Unit: [id number] AGE: 40 Location: OR Re07/18/16 SEX: F Status: DEP SDC SPEC: [id number] SIDRA: 07/18/16- [facility] DR: Erasmo Leong MD REQ: [id number] RECD: 07/18/161206 STATUS: SOUT _ ORDERED: LEVEL [...] performed at Main Lab DEPARTMENT OF PATHOLOGY, [address] [place] [address] Fili Naidu M.D. Director [facility] # [id number] 2 SEE RESULT BELOW Name: IZABELA WAGNER Owen : [address]: Erasmo Leong MD Acct: [id number] Unit: [id number] AGE: 40 Location: OR Re07/18/16 SEX: F Status: REG SDC SPEC: [id number] SIDRA: 07/18/16-1108 [facility] DR: Erasmo Leong MD REQ: [id number] RECD: 07/18/16-1210 STATUS: RES [facility] DR: Ethan Juarez MD PC _ SOURCE: MISC SOURC SPDESC:ANKLE RHT ORDERED: Anaerobic Cult, Culture Stain Procedure Result Reported Site Anaerobic Culture PENDING Wound/Misc Gram Stain Final 07/18/16- 1435 ML No Neutrophils Observed 1+ Epithelial Cells No Organisms Seen Wound/Misc Culture PENDING * ML - MAIN LAB ([facility]1) . END OF REPORT * ML=Testing performed at Main Lab DEPARTMENT OF PATHOLOGY, [address] [place] [address] Fili Naidu M.D. Director [facility] # [id number] 3 SEE RESULT BELOW Name: IZABELA WAGNER : [address]: Erasmo Leong MD Acct: [id number] Unit: [id number] AGE: 40 Location: OR Re07/18/16 SEX: F Status: DEP SDC SPEC: [id number] SIDRA: 07/18/16-1107 [facility] DR: Erasmo Leong MD REQ: [id number] RECD: 07/18/16 STATUS: KAYLI DUEÑAS DR: Ethan [...] Day 2 * ML - MAIN LAB ([facility]) . END OF REPORT * ML=Testing performed at Main Lab DEPARTMENT OF PATHOLOGY, [address] [place] [address] Fili Naidu M.D. Director [facility] # [id number] 4 SEE RESULT BELOW Name: EKTAHUGOIZABELA : [address]: Erasmo Leong MD Acct: [id number] Unit: [id number] AGE: 40 Location: OR Re04/11/16 SEX: F Status: REG [facility] SPEC: [id number] SIDRA: 04/11/16- SUBM DR: Erasmo Leong MD REQ: [id number] RECD: 04/11/161056 STATUS: SOUT _ ORDERED: LEVEL [...] convex centrally-perforated plate with the inscription reading [phone] [id number]. Per established hospital medical staff protocol, no tissue is submitted. Gross only. Signed (signature on file) Fili Naidu MD 1512 END OF REPORT * ML=Testing performed at Main Lab DEPARTMENT OF PATHOLOGY, [address] [place] [address] Fili Naidu M.D. Director [facility] # [id number] 5 Because ethnic data is not always [...] 0.06 ng/mL Not supportive of diagnosis of RI 0.06 - 0.50 ng/mL Indeterminate: suggest serial studies if clinically indicated. Greater than 0.5 ng/mL Consistent with diagnosis of RI 7 RUN DATE: 05/08/13 [facility] LAB LIVE PAGE 1 RUN TIME: [address] [place], [place] [address] Specimen Inquiry Name: IZABELA WAGNER : [address]: Eldon Nair MD Acct: [id number] Unit: [id number] AGE: 37 Location: ED Re05/06/13 SEX: F Status: DEP ER SPEC: [id number] SIDRA: 05/06/13-[address]: Lupe HOGUE REQ: [id number] RECD: 05/06/13 STATUS: KAYLI DUEÑAS DR: [facility] No Primary Care Phys,NOPCP _ SOURCE: URINE SPDESC: ORDERED: Urine Culture Procedure Result Verified Site Urine Culture Final 05/08/13- 1036 ML No Growth Day 2 (<1,000 CFU/mL) END OF REPORT * ML=Testing performed at Main Lab DEPARTMENT OF PATHOLOGY, [facility] [place] [id number] Fili Naidu M.D. Director [place] [employer] Permit #[id number] 8 If is still suspected, please repeat test after 48 to 72 hours. This test detects intact HCG only and is indicated for the early detection of . 9 RUN DATE: 05/07/13 [facility] LAB LIVE PAGE 1 RUN TIME: 1156 [facility] [place], [place] [address] Specimen Inquiry Name: IZABELA WAGNER : [address]: Eldon Nair MD Acct: [id number] Unit: [id number] AGE: 37 Location: ED Re05/06/13 SEX: F Status: DEP ER SPEC: [id number] SIDRA: 05/06/13-[address]: Lupe HOGUE REQ: [id number] RECD: 05/06/13 STATUS: KAYLI DUEÑAS DR: Vaishali [facility] Eldon Nair MD _ SOURCE: VAGINAL SPDESC: [...] performed at Main Lab DEPARTMENT OF PATHOLOGY, [address] [place] [address] Fili Naidu M.D. Director [facility] Permit #[id number] Procedures Date CPT Code Description Status 09/28/2016 38775 Treadmill Interp/Report Only Completed 09/28/2016 38114 Stress Test Supervsn W/Out I/R Completed 09/09/2016 87673 ECHO Transthoracic, Real-Time 2D With Doppler And Color Completed Flow 07/26/2016 88312 Short Leg Cast Completed 07/18/2016 45735 Repair Nonunion/Malunion Tibia W/O Graft Completed 07/18/2016 80011 Repair Nonunion/Malunion Tibia W/O Graft Completed 05/11/2016 58722 Rad Exam; Ankle Limited Completed 04/19/2016 37950 Short Leg Cast Completed 04/11/2016 95554 Removal Implant Deep Wire,Screw Nail,Nikolay Or Plate Completed 04/11/201688894 Removal Implant Deep Wire,Screw Nail,Nikolay Or Plate Completed 04/11/2016 44338 Repair Nonunion/Malunion Tibia W/O Graft Completed 04/11/2016 29651 Repair Nonunion/Malunion Tibia W/O Graft Completed 04/11/2016 43956 Repair Nonunion/Malunion Tibia W/O Graft Completed 04/11/2016 28511 Repair Nonunion/Malunion Tibia W/O Graft Completed 07/20/2015 45912 ORIF Open TX Distal Fibular FX Incl Internal Fixation Completed When Perfom 07/20/2015 00033 ORIF Open TX Distal Fibular FX Incl Internal Fixation Completed When Perfom 02/11/2010 31009 Rad Exam; Ankle Comp Completed Encounters Type Date Location Provider CPT E/M Dx Office Visit 12/01/2016 [facility] Erasmo Leong, 70617 S82.51xK 10:30a Of John Rodriguez Office Visit 10/28/2016 [facility] Erasmo Leong 31192 S82.51xK 10:45a Of John Rodriguez Office Visit 09/06/2016 [facility] Ford Palma 78352 R07.9 2:30p Michael Byrd I10 F17.210 E66.9 R94.31 Office Visit 03/25/2016 11:10a [facility] Erasmo Leong 18935 S82.851S Of John Rodriguez G57.71 Office Visit 03/08/2016 9:30a [facility] Of Erasmo Leong 56489 G57.81 John Rodriguez G57.81 S82.851S S82.851S Office Visit 02/17/2016 3:15p [facility] Of Alirio Segal, 57833 G57.71 John Rodriguez G57.71 S82.851S S82.851S G57.72 Office Visit 11/18/2015 11:20a [facility] Jessica Yeung 54472 S82.851D Of John ANP-C Z47.89 Office Visit 10/23/2015 2:20p [facility] Jessica Yeung 89228 S82.851D Of John ANP-C S82.851D Office Visit 07/16/2015 11:00a [facility] Alirio Segal 22805 S82.851A Of John Rodriguez Office Visit 02/11/2010 9:00a [facility] Mohinder [place] M.D. 75315 726.79 Of C.M.Crissy Plan of Care 05/11/2017 - Erasmo Leong M.D.S82.51xK Disp fx of med malleolus of r tibia, 7thKNew Medication:Ibuprofen 800 mgNew Xrays:Ankle Right 3+VWST84.84xA Pain due to internal orthopedic prosth dev/grft, initNew Xrays:Ankle Right 3+VWS
[2017-05-11] MEDS ORDERED: Aspirin TAB* 325 MG PO ONE (17:38)
[2017-05-11] MEDS ORDERED: Al Hydrox/Mg Hydrox/Simet LIQ* 30 ML UDC PO ONE ×2 (17:38→20:17)
[2017-05-11] MEDS ORDERED: Lidocaine 2% VISCOUS* 15 ML UDC PO ONE ×2 (17:38→20:17)
[2017-05-11 18:28] LABS: ABS Basophils 0.1 10^3/ul (0-0.2); ABS Eosinophils 0.6 10^3/ul (0-0.6); ABS Lymphocytes 3.9 10^3/ul (1.0-4.8); ABS Monocytes 0.5 10^3/ul (0-0.8); ABS Neutrophils 4.9 10^3/ul (1.5-7.7); ABS Nucleated RBC 0 10^3/ul; Eosinophil % 6.5 % (0-6); Hematocrit 43 % (35-47); Hemoglobin 14.8 g/dl (12.0-16.0); Lymphocyte % 38.5 % (25-47); Mean Corpuscular HGB Conc 34 g/dl (31-36); Mean Corpuscular Hemoglobin 31 pg (27-31); Mean Corpuscular Volume 90 fL (80-97); Mean Platelet Volume 8 um3 (7.4-10.4); Nucleated Red Blood Cells % 0; Platelet Count 265 10^3/ul (150-450); Red Blood Count 4.79 10^6/ul (4.0-5.4); Red Cell Distribution Width 13 % (10.5-15)
[2017-05-11 18:51] LABS: EGFR Non-African American 129.3 (>60)
[2017-05-11] MEDS ORDERED: Nitroglycerin TAB 0.4 MG* 0.4 MG TAB SL ONE (18:54)
[2017-05-11] MEDS ORDERED: HYDROmorphone INJ* 2 MG/ML CARPUJECT SYRINGE IV SLOW PU ONE (19:01)
--- NOTE | 2017-05-11 19:07 | RAD ---
INDICATION: Chest pain. COMPARISON: Comparison is made with a prior study from January 28, 2016. TECHNIQUE: A portable view of the chest was obtained. FINDINGS: Cardiac and mediastinal contours appear to be within normal limits. The lungs are underinflated and clear. No pleural effusion or pneumothorax is seen. IMPRESSION: NO EVIDENCE FOR ACUTE DISEASE.
[2017-05-11] MEDS ORDERED: Lidocaine 2% VISCOUS* 15 ML UDC ONE (20:19)
[2017-05-11] MEDS ORDERED: Al Hydrox/Mg Hydrox/Simet LIQ* 30 ML UDC ONE (20:19)
[2017-05-11] MEDS ORDERED: Acetaminophen TAB* 325 MG PO PRN (20:51)
[2017-05-11] MEDS ORDERED: Albuterol 2.5 MG/3 ML NEB.SOL* (0.083%) INH PRN (20:51)
[2017-05-11] MEDS ORDERED: CMCS:Melatonin (NF) 3 MG TAB PO PRN (20:52)
[2017-05-11] MEDS ORDERED: Ondansetron INJ* 2 MG/ML VIAL IV PRN (20:52)
[2017-05-11] MEDS ORDERED: NS 0.9% 1000 ML* 1,000 ML IV SCH (21:00)
[2017-05-11] MEDS: Docusate CAP* 100 MG PO SCH (22:11)
--- NOTE | 2017-05-11 23:12 | HP ---
H&P (Free Text) History and Physical: PCP: Nimesh Juarez MD Date/Time: 05/11/20172039 CC: chest pain HPI: Mrs Rees is a 41YO female HX HTN & chronic regional pain syndrome presents with onset 05/10/2017 ~0500 of sharp L chest pain radiating to the L neck and L shoulder associated with SOB and sweats, but no nausea, light- headedness, or palpitations. She has had similar chest pain in the past, most recently having a low risk nuclear stress test in September 2016. She has never had a cardiac cath. There are no exacerbating factors and thus far only hydromorphone has helped the pain. She reports an adverse reaction to morphine stating, "It makes the pain worse." PMedHx HTN chronic regional pain syndrome anxiety Ambulatory Orders Ibuprofen TAB* [Advil TAB*] 800 mg PO DAILY 04/30/15 Lisinopril TAB* [Prinivil TAB 5 MG*] 5 mg PO DAILY #30 tab 01/28/16 Metoprolol Tartrate TAB* [Lopressor TAB*] 1 tab PO DAILY 02/05/17 Alprazolam 0.25 mg PO QID PRN 05/11/17 NIFEdipine ER TAB* [Procardia Xl TAB*] 60 mg PO DAILY 05/11/17 Allergies MS Morphine [Morphine] Adverse Reaction (Severe, Verified 02/22/17 18:54) Pain PSurgHx cholecystectomy appendectomy hysterectomy surgery R ankle x3 including ORIF med/lat malleoli; planned hardware removal from R ankle SocHx: 1/2 PPD cigarettes, denies alcohol & recreational drugs; lives with her boyfriend; works at [employer]; full code status FamHx: strongly positive for cancer ROS: as above, otherwise reviewed and all were negative vitals: Vital Signs Temp 36.8 C 05/12/17 03:47 Pulse 76 05/12/17 03:47 Resp 16 05/12/17 03:47 BP 116/76 05/12/17 03:47 Pulse Ox 96 05/12/17 03:47 Intake & Output 05/11/17 05/11/17 05/12/17 11:59 23:59 11:59 Intake Total 0 Balance 0 Weight 85.82 kg Intake: Oral 0 Constitutional: NAD, normally developed, overweight white female HEENM: atraumatic; sclera/conjunctiva: anicteric/clear; hearing: clinically intact; oropharynx: clear, mucosa moist Neck: soft tissue: non-tender; thyroid: normal Pulmonary: clear to auscultation bilaterally, good aeration, no accessory muscle use CV: RR/RR, normal S1S2, no carotid bruit, no jugular venous distention, 2+ B DP/ PT, no edema Abdominal: soft, non-distended, non-tender, no rebound/guarding/rigidity, normoactive bowel sounds, no hepatosplenomegaly or masses, no costovertebral angle tenderness Musculoskeletal: general: grossly intact, swelling over R medial malleolus; gait : stable Integumental: normal appearance and texture Psychiatric orientation: AA&O to PPS affect: anxious mood: cooperative eye contact: fair content: reliable responses: timely insight: fair Testing: Lab Results 05/11/17 05/11/17 05/11/17 Range/Units 18:19 18:19 18:19 WBC 10.0 (3.5-10.8) 10^3/ul RBC 4.79 (4.0-5.4) 10^6/ul Hgb 14.8 (12.0-16.0) g/dl Hct 43 (35-47) % MCV 90 (80-97) fL MCH 31 (27-31) pg MCHC 34 (31-36) g/dl RDW 13 (10.5-15) % Plt Count 265 (150-450) 10^3/ul MPV 8 (7.4-10.4) um3 Neut % (Auto) 49.0 (38-83) % Lymph % (Auto) 38.5 (25-47) % Turner % (Auto) 5.0 (1-9) % Eos % (Auto) 6.5 H (0-6) % Baso % (Auto) 1.0 (0-2) % Absolute Neuts (auto) 4.9 (1.5-7.7) 10^3/ul Absolute Lymphs (auto) 3.9 (1.0-4.8) 10^3/ul Absolute Monos (auto) 0.5 (0-0.8) 10^3/ul Absolute Eos (auto) 0.6 (0-0.6) 10^3/ul Absolute Basos (auto) 0.1 (0-0.2) 10^3/ul Absolute Nucleated RBC 0 10^3/ul Nucleated RBC % 0 D-Dimer, Quantitative < 200 (Less Than 230) ng/mL Sodium 136 (133-145) mmol/L Potassium 3.9 (3.5-5.0) mmol/L Chloride 107 (101-111) mmol/L Carbon Dioxide 20 L (22-32) mmol/L Anion Gap 9 (2-11) mmol/L BUN 18 (6-24) mg/dL Creatinine 0.52 (0.51-0.95) mg/dL Est GFR ( Amer) 166.3 (>60) Est GFR (Non-Af Amer) 129.3 (>60) BUN/Creatinine Ratio 34.6 H (8-20) Glucose 104 H (70-100) mg/dL Lactic Acid (0.5-2.0) mmol/L Calcium 9.3 (8.6-10.3) mg/dL Total Bilirubin 0.50 (0.2-1.0) mg/dL AST 15 (13-39) U/L ALT 19 (7-52) U/L Alkaline Phosphatase 41 (34-104) U/L Troponin I 0.00 (<0.04) ng/mL Total Protein 7.5 (6.4-8.9) g/dL Albumin 4.4 (3.2-5.2) g/dL Globulin 3.1 (2-4) g/dL Albumin/Globulin Ratio 1.4 (1-3) 05/11/17 05/11/17 05/11/17 Range/Units 18:19 20:45 23:35 WBC (3.5-10.8) 10^3/ul RBC (4.0-5.4) 10^6/ul Hgb (12.0-16.0) g/dl Hct (35-47) % MCV (80-97) fL MCH (27-31) pg MCHC (31-36) g/dl RDW (10.5-15) % Plt Count (150-450) 10^3/ul MPV (7.4-10.4) um3 Neut % (Auto) (38-83) % Lymph % (Auto) (25-47) % Turner % (Auto) (1-9) % Eos % (Auto) (0-6) % Baso % (Auto) (0-2) % Absolute Neuts (auto) (1.5-7.7) 10^3/ul Absolute Lymphs (auto) (1.0-4.8) 10^3/ul Absolute Monos (auto) (0-0.8) 10^3/ul Absolute Eos (auto) (0-0.6) 10^3/ul Absolute Basos (auto) (0-0.2) 10^3/ul Absolute Nucleated RBC 10^3/ul Nucleated RBC % D-Dimer, Quantitative (Less Than 230) ng/mL Sodium (133-145) mmol/L Potassium (3.5-5.0) mmol/L Chloride (101-111) mmol/L Carbon Dioxide (22-32) mmol/L Anion Gap (2-11) mmol/L BUN 19 (6-24) mg/dL Creatinine 0.60 (0.51-0.95) mg/dL Est GFR ( Amer) 141.0 (>60) Est GFR (Non-Af Amer) 109.6 (>60) BUN/Creatinine Ratio (8-20) Glucose (70-100) mg/dL Lactic Acid 1.6 (0.5-2.0) mmol/L Calcium (8.6-10.3) mg/dL Total Bilirubin (0.2-1.0) mg/dL AST (13-39) U/L ALT (7-52) U/L Alkaline Phosphatase (34-104) U/L Troponin I 0.00 (<0.04) ng/mL Total Protein (6.4-8.9) g/dL Albumin (3.2-5.2) g/dL Globulin (2-4) g/dL Albumin/Globulin Ratio (1-3) 05/11/17 Range/Units 23:35 WBC (3.5-10.8) 10^3/ul RBC (4.0-5.4) 10^6/ul Hgb (12.0-16.0) g/dl Hct (35-47) % MCV (80-97) fL MCH (27-31) pg MCHC (31-36) g/dl RDW (10.5-15) % Plt Count (150-450) 10^3/ul MPV (7.4-10.4) um3 Neut % (Auto) (38-83) % Lymph % (Auto) (25-47) % Turner % (Auto) (1-9) % Eos % (Auto) (0-6) % Baso % (Auto) (0-2) % Absolute Neuts (auto) (1.5-7.7) 10^3/ul Absolute Lymphs (auto) (1.0-4.8) 10^3/ul Absolute Monos (auto) (0-0.8) 10^3/ul Absolute Eos (auto) (0-0.6) 10^3/ul Absolute Basos (auto) (0-0.2) 10^3/ul Absolute Nucleated RBC 10^3/ul Nucleated RBC % D-Dimer, Quantitative (Less Than 230) ng/mL Sodium (133-145) mmol/L Potassium (3.5-5.0) mmol/L Chloride (101-111) mmol/L Carbon Dioxide (22-32) mmol/L Anion Gap (2-11) mmol/L BUN (6-24) mg/dL Creatinine (0.51-0.95) mg/dL Est GFR ( Amer) (>60) Est GFR (Non-Af Amer) (>60) BUN/Creatinine Ratio (8-20) Glucose (70-100) mg/dL Lactic Acid (0.5-2.0) mmol/L Calcium (8.6-10.3) mg/dL Total Bilirubin (0.2-1.0) mg/dL AST (13-39) U/L ALT (7-52) U/L Alkaline Phosphatase (34-104) U/L Troponin I 0.00 (<0.04) ng/mL Total Protein (6.4-8.9) g/dL Albumin (3.2-5.2) g/dL Globulin (2-4) g/dL Albumin/Globulin Ratio (1-3) ECG, personally reviewed: NSR rate 83, no ischemia CXR, personally reviewed: IMPRESSION: NO EVIDENCE FOR ACUTE DISEASE. Impression: 41F presenting with chest pain for r/o ACS DIAGNOSIS & PLAN Primary chest pain r/o ACS : telemetry : trend troponin : ECHO in AM : as she had a low risk nuclear stress test in September 2016, if above is negative would not re-stress : supportive care Secondary HTN : continue lisinopril, metoprolol, & nifedipine chronic regional pain syndrome : hold ibuprofen : PRN acetaminophen anxiety : continue alprazolam Admission Rational: observation for r/o ACS DVTp: heparin SQ Code Status: full
[2017-05-11 23:59] LABS: EGFR Non-African American 109.6 (>60)
[2017-05-12] MEDS ORDERED: traMADol TAB* 50 MG PO PRN (01:57)
[2017-05-12] MEDS ORDERED: ALPRAZolam TAB* 0.25 MG PO PRN (04:34)
[2017-05-12 05:59] LABS: INR 0.95 (0.77-1.02)
[2017-05-12] MEDS ORDERED: Omeprazole CAP* 20 MG PO SCH (06:00)
[2017-05-12] MEDS: Heparin VIAL(*) 5000 UNITS/ML VIAL (FIVE THOUSAND) SUBCUT SCH ×2 (06:25→16:35)
[2017-05-12] MEDS ORDERED: Aspirin EC Low Dose* 81 MG TAB.EC PO SCH (09:00)
[2017-05-12] MEDS ORDERED: Lisinopril TAB* 5 MG PO SCH (09:00)
[2017-05-12] MEDS: Docusate CAP* 100 MG PO SCH (09:44)
[2017-05-12] MEDS: Metoprolol Tartrate TAB* 25 MG PO SCH ×2 (09:45→16:48)
[2017-05-12] MEDS: NIFEdipine ER TAB* 30 MG PO SCH ×2 (09:45→16:48)
[2017-05-12 18:01] VITALS: BP 119/69
--- NOTE | 2017-05-12 18:40 | ECHO ---
Patient: IZABELA WAGNER [facility] Rec#: [id number] : 1975 Date: 05/12/2017 Age: 41y Height: 167.64 cm / 66.0 in Weight: 86.18 kg / 189.9 lbs Sex: F BSA: 1.96 Room#: [facility] Admit Date#: 05/11/2017 Type: Inpatient Referring: Epifanio Weaver MD Reading: Ford yBrd MD Trim Crew Supervisor: Teresa Tavares RDCS CC: Ethan Juarez MD Transthoracic Echocardiogram Indication: Chest Pain BP: 116/76 HR: 72 Rhythm: NSR Findings History: HTN, smoker. Technical Comments: The study quality is good. Completed at 1730. Left Ventricle: The left ventricular chamber size is normal. Mild concentric left ventricular hypertrophy is observed. Global left ventricular wall motion and contractility are within normal limits. The left ventricle appears hyperdynamic. The estimated ejection fraction is greater than 65%. Normal left ventricular diastolic filling is observed. Left Atrium: The left atrium is slightly dilated. Right Ventricle: Moderator Band present. The right ventricular cavity size is normal. The right ventricular global systolic function is normal. Right Atrium: The right atrial cavity size is normal. Aortic Valve: The aortic valve is trileaflet. There is a trace of aortic regurgitation. There is no evidence of aortic stenosis. Mitral Valve: The mitral valve leaflets are mildly thickened. There is a trace of mitral regurgitation. There is no evidence of mitral stenosis. Tricuspid Valve: The tricuspid valve leaflets are normal. There is trace tricuspid regurgitation. The right ventricular systolic pressure is estimated at 21 mmHg. No pulmonary hypertension is noted. There is no tricuspid stenosis. Pulmonic Valve: The pulmonic valve appears normal. There is a trace pulmonic regurgitation. There is no pulmonic stenosis. Pericardium: There is no significant pericardial effusion. Aorta: There is no dilatation of the ascending aorta. There is no dilatation of the aortic arch. The aortic root is normal in size. Pulmonary Artery: The main pulmonary artery appears normal. Venous: The inferior vena cava appears normal in size. There is a greater than 50% respiratory change in the inferior vena cava dimension. Summary: There are changes noted when compared to the previous study done on 11/23/2011, trace valvular disease ( AI, MR, TR ) are new. Conclusions Mild concentric left ventricular hypertrophy is observed. The left ventricle appears hyperdynamic. The estimated ejection fraction is greater than 65%. The left atrium is slightly dilated. There is a trace of aortic regurgitation. There is a trace of mitral regurgitation. There is trace tricuspid regurgitation. There is a trace pulmonic regurgitation. Measurements Name Value Normal Range RVIDd (AP) 2D 3.4 cm (0.9 - 2.6) RVDdMajor (2D) 3.9 cm (2.2 - 4.4) RAd ISD 4CH 4.5 cm (3.4 - 4.9) RA (A4C)W 4.3 cm (2.9 - 4.6) IVSd (2D) 1.1 cm (0.6 - 1) LVPWd (2D) 1.1 cm (0.6 - 1) LVIDd (2D) 4.5 cm (3.6 - 5.4) LVIDs (2D) 2.6 cm - LV FS (2D) 43 % (25 - 45) Aortic Annulus 2.1 cm (1.4 - 2.6) Ao root diameter (2D) 2.8 cm (2.1 - 3.5) Ascending Ao 2.9 cm (2.1 - 3.4) Aortic arch 2.8 cm (1.8 - 3.4) LA dimension (AP) 2D 4 cm (2.3 - 3.8) LAd ISD 4CH 5.2 cm (2.9 - 5.3) LA ISD 4CH W 4.5 cm (2.5 - 4.5) Name Value Normal Range LA ESV SP 4CH (A/L) 48 ml - LA ESV SP 2CH (A/L) 58 ml - LA ESV BP (A/L) 54 ml - LA ESV BP (A/L) index 28 ml/m2 - LA ESV SP 4CH (MOD) 48 ml - LA ESV SP 2CH (MOD) 56 ml - Name Value Normal Range MV E-wave Vmax 1.13 m/sec - MV deceleration time 226.8 msec - MV A-wave Vmax 0.82 m/sec - MV E:A ratio 1.37 ratio - LV septal e' Vmax 0.11 m/sec - LV lateral e' Vmax 0.11 m/sec - LV E:e' septal ratio 10.27 ratio - LV E:e' lateral ratio 10.27 ratio - Name Value Normal Range AV Vmax 1.4 m/sec - AV VTI 27.2 cm - AV peak gradient 7.88 mmHg - AV mean gradient 4.31 mmHg - LVOT Vmax 1.35 m/sec - LVOT VTI 28.33 cm - LVOT peak gradient 7.37 mmHg - LVOT mean gradient 4.04 mmHg - ASTER Vmax 1.03 m/sec - Name Value Normal Range TR Vmax 2.1 m/sec - TR peak gradient 18 mmHg - RAP 3 mmHg - RVSP 21 mmHg - IVC diameter 1.7 cm - Name Value Normal Range PV Vmax 1.09 m/sec - PV peak gradient 4.83 mmHg -
--- NOTE | 2017-05-14 12:47 | ED ---
Darío Appiah Stephanie, scribed for Fuentes Sagastume MD on 05/11/17 at 1844 . HPI Chest Pain - HPI Summary HPI Summary: The pt is a 41 y/o F presenting to the ED with c/o CP that began last night. The CP is located at the mid-sternal chest. Symptoms include neck pain, L arm pain, decreased energy, dizziness and diaphoresis. The CP is constant and described as a sharp pain. The pt denies jaw pain, fever, SOB, dizziness, nausea and vomiting. Aggravating factors include change in position from supine position, and upright position to standing erect. - History of Current Complaint Chief Complaint: EDChestPainROMI Time Seen by Provider: 05/11/17 17:37 Hx Obtained From: Patient Hx Last Menstrual Period: ALL MONTH OF SEPTEMBER Onset/Duration: Started Days Ago - 1, Still Present Timing: Constant Current Severity: Moderate Pain Intensity: 8 Pain Scale Used: 0-10 Numeric Chest Pain Location: Mid Sternal Chest Pain Radiates: Yes Chest Pain Radiates To:: Arm - L, Neck Character: Sharp/Stabbing Aggravating Factor(s): Nothing Alleviating Factor(s): Nothing Associated Signs and Symptoms: Positive: Chest Pain, Dizziness, Diaphoresis. Negative: Shortness of Breath - Allergy/Home Medications Allergies/Adverse Reactions: Allergies Allergy/AdvReac Type Severity Reaction Status Date / Time MS Morphine [Morphine] AdvReac Severe Pain Verified 02/22/17 18:54 Home Medications: Home Medications NIFEdipine ER TAB* [Procardia Xl TAB*] 60 mg PO DAILY 05/11/17 [History Confirmed 05/11/17] PMH/Surg Hx/FS Hx/Imm Hx Endocrine/Hematology History: Denies: Hx Anticoagulant Therapy, Hx Diabetes, Hx Thyroid Disease Cardiovascular History: Reports: Hx Angina - none in 6 months, Hx Hypertension Denies: Hx Congestive Heart Failure, Hx Coronary Artery Disease, Hx Hypercholesterolemia, Hx Myocardial Infarction, Hx Pacemaker/ICD, Hx Valvular Heart Disease, Other Cardiovascular Problems/Disorders Respiratory History: Denies: Hx Asthma, Hx Chronic Obstructive Pulmonary Disease (COPD), Hx Lung Cancer, Other Respiratory Problems/Disorders GI History: Denies: Hx Gall Bladder Disease, Hx Gastrointestinal Bleed, Hx Ulcer, Hx Urosepsis, Other GI Disorders History: Denies: Hx Kidney Stones, Hx Renal Disease Comment Only: Other Problems/Disorders - OVARIAN CYSTS LT OVARY REMOVED Sensory History: Denies: Hx Contacts or Glasses, Hx Hearing Aid Opthamlomology History: Denies: Hx Contacts or Glasses Neurological History: Denies: Hx Dementia, Hx Migraine, Hx Seizures, Hx Transient Ischemic Attacks (TIA), Other Neuro Impairments/Disorders Psychiatric History: Reports: Hx Anxiety - PRN XANAX FOR Denies: Hx Depression, Hx Panic Disorder, Hx Schizophrenia, Hx Bipolar Disorder, Hx Substance Abuse - Surgical History Surgery Procedure, Year, and Place: TRIMALLEOLAR FX RIGHT ANKLE REPAIR 07/24. 1994 LT OOPHERECTOMY. [id number] Gall bladder out;2005 tubal ligation; 1998 , bilat ankles TENDON LENGHTENING at age 6. april 2016 right ankle repair , hysterectomy approx 2014. HYSTERECTOMY 2013 Hx Anesthesia Reactions: No - Immunization History Date of Tetanus Vaccine: 2011 Date of Influenza Vaccine: 2014 Infectious Disease History: No Infectious Disease History: Denies: Hx Clostridium Difficile, Hx Hepatitis, Hx Human Immunodeficiency Virus (HIV), Hx of Known/Suspected MRSA, Hx Shingles, Hx Tuberculosis, Hx Known/ Suspected VRE, Hx Known/Suspected VRSA, History Other Infectious Disease, Traveled Outside the [place] in Last 30 Days - Family History Known Family History: Positive: Cardiac Disease - [place] - Social History Occupation: Unemployed Lives: Dormitory/Roommates Alcohol Use: Occasionally Alcohol Amount: "couple times a month" Substance Use Type: Reports: None Hx Tobacco Use: Yes Smoking Status (MU): Light Every Day Tobacco Smoker Type: Cigarettes Amount Used/How Often: 1 PPD Length of Time of Smoking/Using Tobacco: 20 years Have You Smoked in the Last Year: Yes Review of Systems Positive: Skin Diaphoresis, Other - decreased energy. Negative: Fever, Chills Negative: Erythema Negative: Sore Throat Positive: Chest Pain Negative: Shortness Of Breath, Cough Negative: Abdominal Pain, Vomiting, Nausea Negative: dysuria, hematuria Positive: Other - L arm pain, neck pain. Negative: Myalgia, Edema Negative: Rash Neurological: Other - dizziness All Other Systems Reviewed And Are Negative: Yes Physical Exam - Summary Physical Exam Summary: Constitutional: Well-developed, Well-nourished, Alert. (-) Distressed Skin: Warm, Dry HENT: Normocephalic; Atraumatic Eyes: Conjunctiva normal Neck: Musculoskeletal ROM normal neck. (-) JVD, (-) Stridor, (-) Tracheal deviation Cardio: Rhythm regular, rate normal, Heart sounds normal; Intact distal pulses; The pedal pulses are 2+ and symmetric. Radial pulses are 2+ and symmetric. (-) Murmur Pulmonary/Chest wall: Effort normal. (-) Respiratory distress, (-) Wheezes, (-) Rales Abd: Soft, (-) Tenderness, (-) Distension, (-) Guarding, (-) Rebound Musculoskeletal: (-) Edema Lymph: (-) Cervical adenopathy Neuro: Alert, Oriented x3 Psych: Mood and affect Normal Triage Information Reviewed: Yes Vital Signs On Initial Exam: Initial Vitals Temp Pulse Resp BP Pulse Ox 98 F 83 18 132/91 97 05/11/17 14:46 05/11/17 14:46 05/11/17 14:46 05/11/17 14:46 05/11/17 14:46 Vital Signs Reviewed: Yes Diagnostics - Vital Signs Vital Signs Temp Pulse Resp BP Pulse Ox 05/11/17 18:21 97 05/11/17 17:29 79 23 96 05/11/17 17:28 113/81 05/11/17 14:46 98 F 83 18 132/91 97 - Laboratory Result Diagrams: 05/11/17 18:19 05/11/17 18:19 Lab Statement: Any lab studies that have been ordered have been reviewed, and results considered in the medical decision making process. - Radiology CXR Xray Interpretation: No Acute Changes Radiology Interpretation Completed By: Radiologist - NO EVIDENCE FOR ACUTE DISEASE. - EKG 14:48 Cardiac Rate: NL EKG Rhythm: Sinus Rhythm - 83 BPM EKG Interpretation: No STEMI Chest Pain Course/Dx - Course Course Of Treatment: ED physician presented the pt for admission to hospitalist . The pt rates their pain as a 6 in severity. Hypotensive in 90s systolic. Cant give nitroglycerine due to hypotension. Small dose of dilaudid. Sign out to Dr. Calix pending admission. - Diagnoses Provider Diagnoses: Chest pain Discharge - Discharge Plan Condition: Stable Disposition: OTHER Discharge Disposition Comment: The pt is a sign out to Dr. Calix at shift change. Referrals: Ethan Juarez MD [Primary Care Provider] - The documentation as recorded by the scribDarío acharya Stephanie accurately reflects the service I personally performed and the decisions made by me, Fuentes Sagastume MD.
--- NOTE | 2017-05-15 20:03 | PN ---
Subjective Date of Service: 05/12/17 Interval History: Denies chest pain or shortness of breath. Denies and pain, N/V/D. Requesting to eat, or smoke a cigarette Family History: Unchanged from Admission Social History: Unchanged from Admission Past Medical History: Unchanged from Admission Objective Oxygen Devices in Use Now: None Appearance: appears comfortable sittingin the bed Eyes: No Scleral Icterus Ears/Nose/Mouth/Throat: Clear Oropharnyx, Mucous Membranes Moist Neck: NL Appearance and Movements; NL JVP, Trachea Midline Respiratory: Symmetrical Chest Expansion and Respiratory Effort, Clear to Auscultation Cardiovascular: RRR, No Edema Abdominal: NL Sounds; No Tenderness; No Distention Extremities: No Edema, No Clubbing, Cyanosis Skin: No Rash or Ulcers Neurological: Alert and Oriented x 3, NL Gait, NL Muscle Strength and Tone Nutrition: Taking PO's Result Diagrams: 05/11/17 18:19 05/11/17 23:35 Assess/Plan/Problems-Billing Assessment: Ms. Rees is a 41 y.o female with a hx of HTN and anxiety, who had a negative stress test in September 2016 who presented to the emergency room for left chest pain. - Patient Problems (1) Chest pain Status: Acute Code(s): R07.9 - CHEST PAIN, UNSPECIFIED SNOMED Code(s): 21342155 Comment: Troponin 0.00 x4 no chest pain with Am- recent low risk nuclear stress in 09/2016 Echo -WNL will discharge home - with follow up with PMD advised to stop smoking (2) Anxiety Status: Acute Code(s): F41.9 - ANXIETY DISORDER, UNSPECIFIED SNOMED Code(s) : 54421350 Comment: continue xanax as needed (3) Hypertension Status: Acute Code(s): I10 - ESSENTIAL (PRIMARY) HYPERTENSION SNOMED Code(s) : 16242473 Comment: continue home medictions suggested spacing medication out though out the day advised to stop smoking (4) DVT prophylaxis Status: Acute Code(s): EDP8496 - SNOMED Code(s): 254627794 Comment: HSQ (5) Full code status Status: Acute Code(s): Z78.9 - OTHER SPECIFIED HEALTH STATUS SNOMED Code(s) : 160610477 Status and Disposition: will discharge home- follow up with PMD as an outpatient for further evaluation of her chest pain
== END 2017-05-12 19:30 | disposition home or self-care (01) ==
LOC: ED 14:44 → MEDTELE 20:42
PROVIDERS: ADMIT Hospitalist; ATTEND Internal Medicine
DX: R07.9 Chest pain, unspecified (principal); R42 Dizziness and giddiness; F17.210 Nicotine dependence, cigarettes, uncomplicated; M79.602 Pain in left arm; M54.2 Cervicalgia; Z86.79 Personal history of other diseases of the circulatory system; G90.50 Complex regional pain syndrome I, unspecified; Z90.49 Acquired absence of other specified parts of digestive tract; Z90.89 Acquired absence of other organs
CPT/HCPCS: 36415; 71045; 80053; 82565; 83605; 84484; 84520; 85025; 85379; 85610; 85730; 93005; 93306; 94760; 99285; 99406; A9270-GY; G0378; J1170; J1644; J2405

== ENCOUNTER 2017-06-19 05:50 | Day surgery (SDC) | payer OTHER ==
--- NOTE | 2017-06-14 19:53 | HP ---
PREOPERATIVE HISTORY AND PHYSICAL: DATE OF ADMISSION: 06/19/17 PROVIDER: Erasmo Leong MD * (DICTATED BY MYKEL WATERS) CHIEF COMPLAINT: Right ankle pain. HISTORY OF PRESENT ILLNESS: Paulina is a 41-year-old female who has been followed by Dr. Leong for a right ankle trimalleolar fracture. She went on to have a medial malleolar fracture nonunion and revision of this. She has healed well and now complains of pain due to the hardware along the medial aspect. She continues to have pain with working all day and it tends to rub in her shoes. She is interested in surgical intervention at this point. PAST MEDICAL HISTORY: 1. Hypertension. 2. History of complex regional pain syndrome. PAST SURGICAL HISTORY: Right ankle ORIF and right ankle medial malleolar fracture nonunion revision. She reports no complications of the anesthesia with either of the procedures. CURRENT MEDICATIONS: 1. Ibuprofen 800 mg p.o. 3 times daily as needed. 2. Lisinopril 5 mg p.o. daily. 3. Nifedical XL 30 mg p.o. daily. 4. Alprazolam 0.25 mg p.o. 4 times a day p.r.n. 5. Metoprolol succinate ER daily. ALLERGIES: MORPHINE. 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 She is still smoking a half a pack of cigarettes per day. She consumes alcohol occasionally. She does not exercise regularly. REVIEW OF SYSTEMS: Constitutional: Negative for recent hospitalizations, fevers, chills, night sweats, or weight loss. Head: Negative for headaches, lightheadedness, or balance problems. Cardiovascular: Negative for chest or arm pain with exertion, history of heart attack, heart murmur, heart palpitations. Positive for high blood pressure. Negative for embolism or deep vein thrombosis. Respiratory: Negative for chronic cough, shortness of breath with exertion, asthma, or COPD. Gastrointestinal: Negative for heartburn, nausea, vomiting, diarrhea, constipation, or GERD. Genitourinary: Negative for nighttime urination, frequency of urination, urinary tract infections, or kidney problems. Musculoskeletal: Positive for an ankle fracture. Negative for chronic back or neck pain. Skin: Negative for rashes, lesions, lumps, or sores. Neurologic: Negative for seizure, stroke, epilepsy, depression. Positive for anxiety. Endocrine: Negative for diabetes or thyroid problems. Hematology: Negative for easy bleeding, bruising, or anemia. PHYSICAL EXAMINATION GENERAL: She is a well-developed, well-nourished, pleasant female, in no acute distress at rest. She is alert and oriented x3 with appropriate mood and affect. VITAL SIGNS: The patient is 5 feet 7 inches, 193 pounds, blood pressure 120/82 , pulse 88, temperature 97.8, respirations 16. HEENT: Normocephalic/atraumatic. Hearing and vision are grossly intact. NECK: Trachea is midline. RESPIRATORY: Lungs are clear to auscultation bilaterally. No wheezes, rales, or rhonchi. CARDIOVASCULAR: Regular rate and rhythm. No murmurs, rubs, or gallops. Normal S1, S2. ABDOMEN: Soft, nondistended, nontender. Normal bowel sounds. EXTREMITIES: Exam of the right lower extremity, incisions to the medial malleolar aspect of the ankle are well healed. There is no significant edema, ecchymosis, or gross deformity. She is tender to palpation along the medial malleolus and the hardware is palpable beneath the skin. She is tender to palpation and has a positive Tinel's along the sural nerve distribution as well. Her sensation to light touch is intact. She has normal a vascular exam. IMAGING: Three views of the right ankle were reviewed and show a well-healed medial malleolar fragment with plate and screw fixation. The ankle mortise is intact. IMPRESSION: Painful hardware of the right ankle. PLAN: The patient is to undergo right ankle hardware removal by Dr. Leong on 06/19/17. The risks, benefits, and postoperative course were discussed with the patient at length and she would like to proceed. All of her questions were answered to her full satisfaction. She is understanding to call should she develop any problems or concerns. MYKEL WATERS [id number]/[facility] [place] #: [id number] FABIANA
[~2017-06-19 05:50] MED LIST changes: -Acetaminophen IV 1GM/100ML * 1,000 MG/100 ML VIAL IVPB ONE; -Acetaminophen IV 1GM/100ML * 100 ML ONE; -Buffered Lidocaine 1% SYRIN* 3 ML/SYR SYRINGE INTRADERM ONE; -Bupivacaine 0.5% SDV PF* 30 ML VIAL ONE; -Dexamethasone IV* 4 MG/ML 1 ML (4 MG) IV SLOW PU ONE; -Dexamethasone IV* 4 MG/ML 1 ML (4 MG) ONE; +DiMENhydriNATE IV* 50 MG/ML VIAL IV PUSH PRN; -Famotidine IV* 10 MG/ML 2 ML (20 mg) IV ONE; -Famotidine IV* 10 MG/ML 2 ML (20 mg) ONE; +HYDROmorphone INJ* 1 MG/ML CARPUJECT SYRINGE IV PRN; -HYDROmorphone* 1 MG/ML 1 ML SYR IV SLOW PU PRN; -HYDROmorphone* 1 MG/ML 1 ML SYR ONE; -Ketorolac INJ* 30 MG/ML 1 ML VIAL ONE; -Lidocaine 2% PF* 5 ML VIAL ONE; -Midazolam* 1 MG/ML 5 ML VIAL (5 MG) ONE; +Naloxone* 0.4 MG/ML 1 ML VIAL IV PRN; -Ondansetron INJ* 2 MG/ML VIAL ONE; -Propofol* 10 MG/ML 20 ML BTL IV PUSH ONE; +Scopolamine 1.5 mg* PATCH TRANSDERM PRN; -ceFAZolin 2 GM PREMIX(*) 2 GM/50 ML BAG IVPB ONE; -fentaNYL* 50 MCG/ML 2 ML VIAL (100 MCG VIAL) ONE; -fentaNYL* 50 MCG/ML 5 ML VIAL (250 MCG VIAL) ONE; -oxyCODONE TAB* 5 MG TAB ONE; -oxyCODONE TAB* 5 MG TAB PO ONE; -oxyCODONE/Acetamin 5/325 MG* TAB ONE
[2017-06-19] MEDS ORDERED: Famotidine IV* 10 MG/ML 2 ML (20 mg) ONE (05:53)
[2017-06-19] MEDS ORDERED: ceFAZolin 2 GM in 100 MLS NS (*) BAG IVPB ONE (05:54)
[2017-06-19] MEDS ORDERED: Buffered Lidocaine 0.9% SYRIN* 5 ML/SYR SYRINGE ONE (05:54)
[2017-06-19] MEDS ORDERED: Famotidine IV* 10 MG/ML 2 ML (20 mg) IV ONE (06:00)
[2017-06-19] MEDS ORDERED: Buffered Lidocaine 0.9% SYRIN* 5 ML/SYR SYRINGE INTRADERM ONE (06:00)
[2017-06-19] MEDS ORDERED: Bupivacaine 0.5% SDV PF* 10-30ML VIAL ONE (07:09)
[2017-06-19] MEDS ORDERED: fentaNYL* 50 MCG/ML 2 ML VIAL (100 MCG VIAL) ONE ×3 (07:22→08:24)
[2017-06-19] MEDS ORDERED: Midazolam* 1 MG/ML 5 ML VIAL (5 MG) ONE (07:22)
[2017-06-19] MEDS ORDERED: Ondansetron INJ* 2 MG/ML VIAL ONE (07:37)
[2017-06-19] MEDS ORDERED: Dexamethasone IV* 4 MG/ML 1 ML (4 MG) ONE (07:37)
[2017-06-19] MEDS ORDERED: Propofol* 10 MG/ML 20 ML BTL IV PUSH ONE (07:37)
[2017-06-19] MEDS ORDERED: hydrALAZINE IV* 20 MG/ML VIAL ONE (07:53)
[2017-06-19] MEDS ORDERED: Metoprolol Tartrate IV* 1 MG/ML 5 ML VIAL ONE (07:53)
[2017-06-19] MEDS ORDERED: Labetalol IV* 5 MG/ML 20 ML VIAL ONE (07:54)
[2017-06-19] MEDS ORDERED: oxyCODONE/Acetamin 5/325 MG* TAB ONE (08:24)
[2017-06-19] MEDS: oxyCODONE/Acetamin 5/325 MG* TAB PO PRN ×2 (08:26→08:57)
[2017-06-19] MEDS: fentaNYL* 50 MCG/ML 2 ML VIAL (100 MCG VIAL) IV PRN ×2 (08:28→08:46)
[2017-06-19 08:45] VITALS: BP 119/84
--- NOTE | 2017-06-20 08:19 | OP ---
DATE OF OPERATION: 06/19/17 - [facility] DATE OF : 73 SURGEON: Dr. Erasmo Leong SCHOOL TREASURER: Ember Husain PA-C PRE-OP DIAGNOSIS: Painful hardware right medial malleolus. POST-OP DIAGNOSIS: Painful hardware right medial malleolus. OPERATIVE PROCEDURE: Removal of hardware, right medial malleolus. DESCRIPTION OF PROCEDURE: The patient was taken to the operating room where a longitudinal incision was made over the medial malleolus. We incised down directly over the plate where the small fragment screws were removed routinely without difficulty as well as the plate itself. We irrigated thoroughly closing with Vicryl and kike for the skin and a compression dressing applied. [id number]/[facility] #: [id number] [facility]AMPUSVal[facility]
[2017-06-22] MEDS ORDERED: Scopolamine PATCH Remove* 1 NOTE MISC PATCH OFF ONE (05:49)
== END 2017-06-19 09:22 | disposition home or self-care (01) ==
LOC: OR 05:50
PROVIDERS: ATTEND Orthopaedic Surgery
DX: T84.84XA Pain due to internal orthopedic prosthetic devices, implants and grafts, initial encounter (principal); Y83.1 Surgical operation with implant of artificial internal device as the cause of abnormal reaction of the patient, or of later complication, without mention of misadventure at the time of the procedure; I10 Essential (primary) hypertension; S82.51XS Displaced fracture of medial malleolus of right tibia, sequela; X58.XXXS Exposure to other specified factors, sequela; G90.50 Complex regional pain syndrome I, unspecified; F17.210 Nicotine dependence, cigarettes, uncomplicated; Z79.899 Other long term (current) drug therapy
CPT/HCPCS: 88300; A9270-GY; J0360; J1100; J2250; J2405; J2704; J3010; J3490

== ENCOUNTER 2018-04-13 08:24 | Emergency (ER) | payer OTHER ==
[2018-04-13 08:33] VITALS: BP 123/77
--- NOTE | 2018-04-13 09:50 | UC ---
Throat Pain/Nasal Akshat HPI - HPI Summary HPI Summary: 42 yo female presents with 1.5 weeks of sinus pain/pressure/congestion. Over the last 3 days has had a dry cough and sore throat. Her boyfriend was recently dx'd with PNA and she is concerned about this. She has been taking anything OTC. Has felt hot/cold, but has not taken her temperature. Denies SOB, chest pain, rash, n/v. - History of Current Complaint Chief Complaint: UCRespiratory Stated Complaint: SORE THROAT, COUGH Time Seen by Provider: 04/13/18 09:49 Hx Obtained From: Patient Hx Last Menstrual Period: ALL MONTH OF SEPTEMBER Onset/Duration: Gradual Onset Severity: Mild Pain Intensity: 4 Pain Scale Used: 0-10 Numeric Cough: Nonproductive - Allergies/Home Medications Allergies/Adverse Reactions: Allergies Allergy/AdvReac Type Severity Reaction Status Date / Time morphine Allergy CAUSES Verified 04/13/18 08:34 INCREASED PAIN Home Medications: Home Medications busPIRone TAB* [Buspar TAB*] 5 mg PO DAILY 04/13/18 [History Confirmed 04/13/18] PMH/Surg Hx/FS Hx/Imm Hx Cardiovascular History: Hypertension Psychological History: Anxiety, Depression Other History Of: Negative For: Anticoagulant Therapy - Surgical History Surgical History: Yes Surgery Procedure, Year, and Place: TRIMALLEOLAR FX RIGHT ANKLE REPAIR 07/24. 1994 LT OOPHERECTOMY. [id number] Gall bladder out;2005 hysterectomy tubal ligation;1998 , bilat ankles TENDON. LENGHTENING at age 6. april 2016 right ankle repair , hysterectomy approx 2014 - Family History Known Family History: Positive: Cardiac Disease - [place] - Social History Occupation: Employed Full-time Lives: With Family Alcohol Use: Occasionally Alcohol Amount: "couple times a month" Substance Use Type: None Smoking Status (MU): Heavy Every Day Tobacco Smoker Type: Cigarettes Amount Used/How Often: 1 PPD Length of Time of Smoking/Using Tobacco: 20 years Have You Smoked in the Last Year: Yes Household Exposure Type: Cigarettes Review of Systems All Other Systems Reviewed And Are Negative: Yes Constitutional: Positive: Negative Skin: Positive: Negative Eyes: Positive: Negative ENT: Positive: Sore Throat, Nasal Discharge, Sinus Congestion, Sinus Pain/ Tenderness Respiratory: Positive: Cough Cardiovascular: Positive: Negative Gastrointestinal: Positive: Negative Neurovascular: Positive: Negative Neurological: Positive: Negative Psychological: Positive: Negative Physical Exam - Summary Physical Exam Summary: GENERAL: NAD. WDWN. No pain distress. SKIN: No rashes, sores, lesions, or open wounds. HEENT: Head: AT/NC Eyes: EOM intact. Conjunctiva clear without inflammation or discharge. Ears: Hearing grossly normal. TMs intact, no bulging, erythema, or edema. Nose: Nasal mucosa mildly swollen and erythematous with yellow discharge. TTP maxillary and frontal sinus. Positive post nasal drip Throat: Posterior oropharynx without exudates, erythema, or tonsillar enlargement. Uvula midline. NECK: Supple. Nontender. No lymphadenopathy. CHEST: CTAB. No r/r/w. No accessory muscle use. Breathing comfortably and in no distress. CV: RRR. Without m/r/g. Pulses intact. NEURO: Alert. PSYCH: Age appropriate behavior. Triage Information Reviewed: Yes Vital Signs: Initial Vital Signs Temp 98.7 F 04/13/18 08:29 Pulse 91 04/13/18 08:29 Resp 16 04/13/18 08:29 BP 123/77 04/13/18 08:29 Pulse Ox 99 04/13/18 08:29 Vital Signs Reviewed: Yes Throat Pain/Nasal Course/Dx - Course Course Of Treatment: Sinusitis - Differential Dx/Diagnosis Provider Diagnosis: Sinusitis Discharge - Sign-Out/Discharge Documenting (check all that apply): Patient Departure All imaging exams completed and their final reports reviewed: No Studies - Discharge Plan Condition: Stable Disposition: HOME Prescriptions: Amoxicillin PO (*) [Amoxicillin 875 MG (*)] 875 mg PO BID #14 tab Patient Education Materials: Sinusitis (ED) Forms: *Work Release Referrals: Ethan Juarez MD [Primary Care Provider] - Additional Instructions: If you develop a fever, shortness of breath, chest pain, new or worsening symptoms - please call your PCP or go to the ED. - Billing Disposition and Condition Condition: STABLE Disposition: Home
== END 2018-04-13 10:11 | disposition home or self-care (01) ==
LOC: UCEAST 08:24
DX: J32.9 Chronic sinusitis, unspecified (principal); Z88.5 Allergy status to narcotic agent; F17.210 Nicotine dependence, cigarettes, uncomplicated
CPT/HCPCS: 99212; G0463

== ENCOUNTER 2018-05-17 17:10 | Emergency (ER) | payer OTHER ==
[2018-05-17 17:31] VITALS: BP 128/89
--- NOTE | 2018-05-17 17:36 | UC ---
Respiratory Complaint HPI - HPI Summary HPI Summary: sinus congestion, loss of voice and watery eyes w/ stinging sensation started 1 wk ago. coworkers are sick contacts. denies fever, n/v, rash, neck pain. laos starting to cough. s he is a smoker. - History of Current Complaint Chief Complaint: UCRespiratory Stated Complaint: EYE IRRITATION, AND SINUS CONGESTION Time Seen by Provider: 05/17/18 17:28 Hx Obtained From: Patient Hx Last Menstrual Period: total hysterectomy Pain Intensity: 7 Pain Scale Used: 0-10 Numeric Character: Cough: Nonproductive Aggravating Factors: Allergens - smoking Alleviating Factors: Nothing - Allergies/Home Medications Allergies/Adverse Reactions: Allergies Allergy/AdvReac Type Severity Reaction Status Date / Time morphine Allergy Intermediate CAUSES Verified 05/17/18 17:34 INCREASED PAIN PMH/Surg Hx/FS Hx/Imm Hx Previously Healthy: Yes Other History Of: Negative For: Anticoagulant Therapy - Surgical History Surgical History: Yes Surgery Procedure, Year, and Place: TRIMALLEOLAR FX RIGHT ANKLE REPAIR 07/24. 1994 LT OOPHERECTOMY. [id number] Gall bladder out;2005 hysterectomy tubal ligation;1998 , bilat ankles TENDON. LENGHTENING at age 6. april 2016 right ankle repair , hysterectomy approx 2014 - Family History Known Family History: Positive: None, Cardiac Disease - [place] - Social History Alcohol Use: Occasionally Alcohol Amount: "couple times a month" Substance Use Type: None Smoking Status (MU): Heavy Every Day Tobacco Smoker Type: Cigarettes Amount Used/How Often: 1 PPD Length of Time of Smoking/Using Tobacco: 20 years Have You Smoked in the Last Year: Yes Household Exposure Type: Cigarettes Review of Systems All Other Systems Reviewed And Are Negative: Yes Constitutional: Positive: Negative. Negative: Fever, Chills, Fatigue Skin: Negative: Rash Eyes: Positive: Eye Redness, Other - stinging eyes ENT: Positive: Sinus Congestion. Negative: Sore Throat, Ear Ache, Nasal Discharge Respiratory: Positive: Cough. Negative: Shortness Of Breath Cardiovascular: Positive: Negative Musculoskeletal: Negative: Myalgia Neurological: Negative: Headache Physical Exam Triage Information Reviewed: Yes Appearance: Well-Appearing Vital Signs: Initial Vital Signs Temp 98.3 F 05/17/18 17:24 Pulse 74 05/17/18 17:24 Resp 16 05/17/18 17:24 BP 128/89 05/17/18 17:24 Pulse Ox 98 05/17/18 17:24 Vital Signs Reviewed: Yes Eyes: Positive: Conjunctiva Inflamed, Other: - eye watering ENT: Positive: Pharynx normal, TMs normal, Uvula midline Neck: Positive: Supple, Nontender, No Lymphadenopathy Respiratory Exam: Normal Cardiovascular Exam: Normal Neurological: Positive: Alert Skin: Negative: Rashes UC Diagnostic Evaluation - Laboratory O2 Sat by Pulse Oximetry: 98 Respiratory Course/Dx - Course Course Of Treatment: Sinus congestion, cough, laryngitis x1 wk in a smoker. Suspect viral illness but am covering for bacterial source given Exam which was significant for R sided rhonchi. Vitals good. - Differential Dx/Diagnosis Differential Diagnosis/HQI/PQRI: Lower Resp Infection, Sinusitis Provider Diagnosis: URI, acute, Laryngitis Discharge - Sign-Out/Discharge Documenting (check all that apply): Patient Departure All imaging exams completed and their final reports reviewed: No Studies - Discharge Plan Condition: Good Disposition: HOME Prescriptions: Azithromycin TAB* [Zithromax TAB (Z-THALIA) 250 mg #6 tabs] 2 tab PO .TODAY, THEN 1 DAILY #1 thalia Patient Education Materials: Upper Respiratory Infection (DC) Forms: *Work Release Referrals: Ethan Juarez MD [Primary Care Provider] - Additional Instructions: Although I suspect this is viral, I am sending antibiotics to cover for bacterial source. - Billing Disposition and Condition Condition: GOOD Disposition: Home
== END 2018-05-17 18:05 | disposition home or self-care (01) ==
LOC: UCEAST 17:10
DX: J06.9 Acute upper respiratory infection, unspecified (principal); J04.0 Acute laryngitis; F17.210 Nicotine dependence, cigarettes, uncomplicated; Z88.5 Allergy status to narcotic agent
CPT/HCPCS: 99212; G0463

== ENCOUNTER 2018-11-09 16:38 | Emergency (ER) | payer SELFPAY ==
[2018-11-09 16:47] VITALS: BP 130/92
--- NOTE | 2018-11-09 16:59 | UC ---
Ear Complaint HPI - HPI Summary HPI Summary: 43 year old female with + TOB use, HTN presents with right ear pain x 4 days. pain is worsening, difficulty sleeping at night, increased pressure, pain. + right sided MERIDA. no SB, cough, throat pain, sinus pressure. no L sided symptoms. last ear infection ~ 9 years ago. no GI symptoms. naproxen for pain, + relief however upset stomach. NO recent ABX use - History of Current Complaint Chief Complaint: UCEar Stated Complaint: EAR PAIN Time Seen by Provider: 11/09/18 16:58 Hx Obtained From: Patient Hx Last Menstrual Period: hysterectomy ?: No Onset/Duration: Sudden Onset, Lasting Days Severity Initially: Moderate Severity Currently: Moderate Pain Intensity: 6 Pain Scale Used: 0-10 Numeric Alleviating Factors: OTC Meds Associated Signs/Symptoms: Negative: Discharge, Hearing Loss, Foreign Body Sensation, Trauma to Ear - Allergies/Home Medications Allergies/Adverse Reactions: Allergies Allergy/AdvReac Type Severity Reaction Status Date / Time morphine Allergy Intermediate CAUSES Verified 09/10/18 10:45 INCREASED PAIN Home Medications: Home Medications Naproxen Sodium [Aleve] 11/09/18 [History] PMH/Surg Hx/FS Hx/Imm Hx Previously Healthy: Yes Other History Of: Negative For: Anticoagulant Therapy - Surgical History Surgery Procedure, Year, and Place: TRIMALLEOLAR FX RIGHT ANKLE REPAIR 07/24. 1994 LT OOPHERECTOMY. [id number] Gall bladder out;2005 hysterectomy tubal ligation;1998 , bilat ankles TENDON REPAIR. LENGHTENING at age 6. april 2016 right ankle repair , hysterectomy approx 2014 - Family History Known Family History: Positive: None, Cardiac Disease - [place], Non-Contributory - Social History Alcohol Use: Occasionally Alcohol Amount: "couple times a month" Substance Use Type: None Smoking Status (MU): Heavy Every Day Tobacco Smoker Type: Cigarettes Amount Used/How Often: 1 PPD Length of Time of Smoking/Using Tobacco: 20 years Have You Smoked in the Last Year: Yes Household Exposure Type: Cigarettes Review of Systems All Other Systems Reviewed And Are Negative: Yes Constitutional: Negative: Fever, Chills, Fatigue ENT: Positive: Ear Ache. Negative: Epistaxis, Dental Pain, Sore Throat, Nasal Discharge, Sinus Congestion, Sinus Pain/Tenderness Respiratory: Positive: Negative. Negative: Shortness Of Breath, Cough Is Patient Immunocompromised?: No Physical Exam Triage Information Reviewed: Yes Appearance: Well-Appearing, No Pain Distress, Well-Nourished Vital Signs: Initial Vital Signs Temp 99.3 F 11/09/18 16:42 Pulse 98 11/09/18 16:42 Resp 16 11/09/18 16:42 BP 130/92 11/09/18 16:42 Pulse Ox 96 11/09/18 16:42 Vital Signs Reviewed: Yes Eyes: Positive: Conjunctiva Clear ENT: Positive: Hearing grossly normal, Pharynx normal, Uvula midline, Other - TM L normal, unable to visualize TM on right side due to cerumen. Ear canal without redness, drainage. + periauricle tenderness, + pain with pinna pulling.. Negative: Pharyngeal erythema, Tonsillar swelling, Tonsillar exudate , Sinus tenderness Neck: Positive: Supple, Nontender, No Lymphadenopathy. Negative: Nuchal Rigidity, Enlarged Nodes @ Respiratory: Positive: Chest non-tender, Lungs clear, Normal breath sounds, No respiratory distress Cardiovascular: Positive: RRR, No Murmur Neurological Exam: Normal Psychological Exam: Normal Skin Exam: Normal Ear Complaint Course/Dx - Course Course Of Treatment: Ear Infection, right - Antibiotics as prescribed - [facility] if no improvement - Go to ER with increased pain, headache, ear drainage, fever > 101 - STop Naproxen, may take tylenol for pain - Differential Dx/Diagnosis Differential Diagnosis/HQI/PQRI: Cerumen Impaction, Otitis Externa, Otitis Media , Pharyngitis, URI Provider Diagnosis: AOM (acute otitis media) Discharge - Sign-Out/Discharge Documenting (check all that apply): Patient Departure All imaging exams completed and their final reports reviewed: No Studies - Discharge Plan Condition: Good Disposition: HOME Prescriptions: Amoxicillin PO (*) [Amoxicillin 875 MG (*)] 875 mg PO BID #20 tab Patient Education Materials: Ear Infection (ED) Referrals: Ethan Juarez MD [Primary Care Provider] - [facility] [Provider Group] Additional Instructions: Ear Infection - Antibiotics as prescribed - Follow [facility] with [facility] on Monday if no improvement - Go to ER with increased pain, headache, ear drainage, fever > 101 - STop Naproxen, may take tylenol for pain - Billing Disposition and Condition Condition: GOOD Disposition: Home
== END 2018-11-09 17:23 | disposition home or self-care (01) ==
LOC: UCEAST 16:38
DX: H66.91 Otitis media, unspecified, right ear (principal); F17.210 Nicotine dependence, cigarettes, uncomplicated; Z88.5 Allergy status to narcotic agent
CPT/HCPCS: 99212; G0463

== ENCOUNTER 2019-02-01 10:01 | Emergency (ER) | payer SELFPAY ==
[2019-02-01 10:32] VITALS: BP 136/100
--- NOTE | 2019-02-01 10:41 | UC ---
Skin Complaint HPI - HPI Summary HPI Summary: 3 WEEKS OF DIFFUSE ITCHY RED RASH. TOOK A MEDROL DOSEPAK WHICH HELPED A LITTLE BIT BUT SYMPTOMS QUICKLY RECURRED. NO FEVER, NAUSEA/VOMITING. NO NEW EXPOSURES SHE IS AWARE OF. NO NEW MEDICATIONS. NO TONGUE/LIP SWELLING. NO AIRWAY COMPROMISE. - History of Current Complaint Chief Complaint: UCRash Time Seen by Provider: 02/01/19 10:39 Stated Complaint: RASH Hx Obtained From: Patient Hx Last Menstrual Period: hysterectomy Onset/Duration: Gradual Onset, Lasting Weeks, Still Present Timing: Constant Onset Severity: Moderate Current Severity: Moderate Pain Intensity: 8 Pain Scale Used: 0-10 Numeric Location: Diffuse Character: Pruritus, Hives, Raised Aggravating Factor(s): Touch Alleviating Factor(s): Nothing Associated Signs & Symptoms: Positive: Rash. Negative: Tenderness - Allergy/Home Medications Allergies/Adverse Reactions: Allergies Allergy/AdvReac Type Severity Reaction Status Date / Time morphine Allergy Intermediate CAUSES Verified 02/01/19 10:33 INCREASED PAIN PMH/Surg Hx/FS Hx/Imm Hx Cardiovascular History: Hypertension Psychological History: Anxiety Other History Of: Negative For: Anticoagulant Therapy - Surgical History Surgical History: Yes Surgery Procedure, Year, and Place: TRIMALLEOLAR FX RIGHT ANKLE REPAIR 07/24. 1994 LT OOPHERECTOMY. [id number] Gall bladder out;2005 hysterectomy tubal ligation;1998 , bilat ankles TENDON REPAIR. LENGHTENING at age 6. april 2016 right ankle repair , hysterectomy approx 2014 - Family History Known Family History: Positive: None, Cardiac Disease - [place], Non-Contributory - Social History Alcohol Use: Occasionally Alcohol Amount: "couple times a month" Substance Use Type: None Smoking Status (MU): Heavy Every Day Tobacco Smoker Type: Cigarettes Amount Used/How Often: 1/2ppd Length of Time of Smoking/Using Tobacco: 20 years Have You Smoked in the Last Year: Yes Household Exposure Type: Cigarettes Review of Systems All Other Systems Reviewed And Are Negative: Yes Constitutional: Positive: Negative Skin: Positive: Rash Respiratory: Positive: Negative Cardiovascular: Positive: Negative Gastrointestinal: Positive: Negative Physical Exam Triage Information Reviewed: Yes Appearance: Well-Appearing, No Pain Distress, Well-Nourished Vital Signs: Initial Vital Signs Temp 98.3 F 02/01/19 10:27 Pulse 82 02/01/19 10:27 Resp 18 02/01/19 10:27 BP 136/100 02/01/19 10:27 Pulse Ox 100 02/01/19 10:27 Vital Signs Reviewed: Yes Eyes: Positive: Conjunctiva Clear ENT: Positive: Hearing grossly normal, Pharynx normal Neck: Positive: Supple Respiratory Exam: Normal Cardiovascular Exam: Normal Abdomen Description: Positive: Soft Musculoskeletal: Positive: No Edema Neurological: Positive: Alert Psychological: Positive: Age Appropriate Behavior Skin: Positive: Rashes - ERYTHEMATOUS MACULOPAPULAR RASH DIFFUSELY OVER WHOLE BODY. NO EXCORIATION, INDURATION OR FLUCTUANCE. NON TENDER. Course/Dx - Course Course Of Treatment: RASH CONSISTENT IN APPEARANCE OF HIVES/ALLERGIC DERMATITIS. WILL TREAT WITH 7 DAYS OF PREDNISONE. ENCOURAGED PATIENT TO TAKE A DAILY ANTIHISTAMINE. KEEP COOL CLEAN AND DRY. FOLLOW-UP WITH PAPER MACHINE TENDER AND/OR DERMATOLOGY. - Diagnoses Provider Diagnosis: Allergic dermatitis Discharge ED - Sign-Out/Discharge Documenting (check all that apply): Patient Departure All imaging exams completed and their final reports reviewed: No Studies - Discharge Plan Condition: Stable Disposition: HOME Prescriptions: predniSONE TAB* [Deltasone TAB*] 50 mg PO DAILY #7 tab Patient Education Materials: Urticaria (ED) Referrals: Ethan Juarez MD [Primary Care Provider] - If Needed Additional Instructions: YOUR RASH IS CONSISTENT IN APPEARANCE WITH AN ALLERGIC DERMATITIS. USE DAILY HYPOALLERGENIC MOISTURIZING LOTION TAKE PREDNISONE DAILY PRESCRIBED AVOID HEAT AND HOT WATER TAKE OTC ANTIHISTAMINE DAILY (CLARITIN (LORATADINE), ZYRTEC (CETIRIZINE) OR RICK (FEXOFENADINE) IN THE MORNING) DO NOT SCRATCH KEEP COOL, CLEAN AND DRY OKAY TO USE TOPICAL STEROID SPARINGLY 2-3 TIMES DAILY ON ITCHY SPOTS. KEEP AWAY FROM MUCOUS MEMBRANES. GO TO THE ED WITHOUT FAIL IF YOU DEVELOP ANY RESPIRATORY INVOLVEMENT, TONGUE/ LIP SWELLING, FEVER, NAUSEA/VOMITING OR ANY OTHER CONCERNING SYMPTOMS. CONSIDER EVAL BY AN PAPER MACHINE TENDER OR TRANSFER MAN. [facility] Address: [address] [place] [address] [facility] [address] [place] [address] [address] [place] [address] [place] [address] GEOFF NAYLOR (DOES NOT SEE PTS ON MONDAYS OR TUESDAYS) [facility], [facility] [address]; [address] [place] [address] Dr. Terese Chappell Address: [address] [place] [address] DR. ABBEY ROACH, DR. SEEMA POWELL [facility] Dermatology [address], [place] [address] [address] [place] Dr[address] Agata Little DERMATOLOGY IN [place] DR. ABBEY ROACH [phone] - Billing Disposition and Condition Condition: STABLE Disposition: Home
== END 2019-02-01 11:39 | disposition home or self-care (01) ==
LOC: UCEAST 10:01
DX: L23.9 Allergic contact dermatitis, unspecified cause (principal); I10 Essential (primary) hypertension; F17.210 Nicotine dependence, cigarettes, uncomplicated; Z88.5 Allergy status to narcotic agent
CPT/HCPCS: 99212; G0463

== ENCOUNTER 2019-05-13 08:23 | Emergency (ER) | payer SELFPAY ==
--- OUTSIDE RECORDS SUMMARY | 2019-05-13 08:30 | XMS REPORT | Continuity of Care Document ---
:1975 External Reference #:[id number] Author Name Tripp King DO, MPH Address [address] [place] [address], [address] [place] [address] Care Team Providers Name Role Phone Alex Redd MD - Orthopaedic Care Team Information [facility] Surgery Ethan Juarez M.D. - Internal Care Team Information Tie [facility]er Medicine Problems Active Problems Provider Date Adult attention deficit hyperactivity Tripp King DO MPH Onset: 01/24/2019 disorder Anxiety state Tripp King DO MPH Onset: 01/24/2019 Hyperlipidemia Tripp King DO, MPH Onset: 01/24/2019 Essential hypertension Tripp King DO, MPH Onset: 01/24/2019 Prediabetes Tripp King DO MPH Onset: 01/24/2019 Social History Type Date Description Comments Sex Unknown ETOH Use Occasionally consumes alcohol Tobacco Use Start: Unknown Patient is a current smoker, smokes every day Recreational Drug Use Denies Drug Use Smoking Status Reviewed: 03/13/19 Patient is a current smoker, smokes every day Allergies, Adverse Reactions, Alerts Active Allergies Reaction Severity Comments Date Morphine 01/24/2019 Medications Active Medications SIG Qnty Indications Ordering Provider Date Oxycodone HCL si by mouth 60tabs Tripp King DO, 01/24/2019 5mg every 8 to 12 MPH Tablets hours as directed chronic pain patient Metoprolol Tartrate 1 by mouth every Unknown night at bedtime 25mg Tablets Lisinopril 1 by mouth every Unknown 5mg Tablets day Nifedipine ER by mouth every Unknown 60mg day as directed Tablets ER 24HR Buspirone HCL si by mouth Unknown 5mg twice a day Tablets History Medications Medrol medication to be 21units Tripp King DO, 01/24/2019 - 4mg TBPK taken as directed MPH 02/12/2019 Immunizations Description No Information Available Vital Signs Date Vital Result Comment 03/13/2019 9:17am BP Systolic 126 mmHg BP Diastolic 78 mmHg Heart Rate 76 /min Respiratory Rate 20 /min Height 67 inches 5'7" Weight 206.00 lb Pain Level 6 Pain at this time. Pain Level With Medicine 5 on average with meds Pain Level Without Medicine 9 without meds BMI (Body Mass Index) 32.3 kg/m2 02/16/2019 10:41am BP Systolic 122 mmHg BP Diastolic 80 mmHg Heart Rate 80 /min Respiratory Rate 20 /min Height 67 inches 5'7" Weight 200.00 lb Pain Level 8 Pain at this time. Pain Level With Medicine 7 on average with meds Pain Level Without Medicine 9 without meds Pain Level After Procedure 4 BP Systolic Recheck 128 mmHg Pulse: 84 BP Diastolic Recheck 82 mmHg Pulse: 84 BMI (Body Mass Index) 31.3 kg/m2 Results Description No Information Available Procedures Date Code Description Status 02/16/2019 92890 Omt 1-2 Body Regions Completed 02/16/2019 95260 Injection For Nerve Block, Other Peripheral Nerve Or Completed Branch 02/16/2019 81674 Arthrocentesis/Aspiration/Inj Of Major Joint Or Bursa W/ Completed [employer] Description No Information Available Encounters Type Date Location Provider Dx Diagnosis Office Visit 02/12/2019 Main Office as Of Tripp King DO, G89.21 Chronic pain due 10:15a 05/11/13 MPH to trauma G89.28 Other chronic postprocedural pain M25.571 Pain in right ankle and joints of right foot 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 Z79.891 halfway (current) use of opiate analgesic Office Visit 01/24/2019 1:45p Main Office as Tripp King G89.21 Chronic pain due Of 05/11/13 , MPH to trauma G89.28 Other chronic postprocedural pain M25.571 Pain in right ankle and joints of right foot Z79.891 halfway (current) use of opiate analgesic Z71.89 Other specified counseling 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 Assessments Date Code Description Provider 03/13/2019 G89.21 Chronic pain due to trauma King, Tripp, DO, MPH 03/13/2019 M25.571 Pain in right ankle and joints of right foot King, Tripp , DO, MPH 03/13/2019 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 King, Tripp , DO, MPH 03/13/2019 Z79.891 halfway (current) use of opiate analgesic King, Tripp , DO, MPH 02/16/2019 G89.21 Chronic pain due to trauma King, Tripp, DO, MPH 02/16/2019 M25.571 Pain in right ankle and joints of right foot King, Tripp , DO, MPH 02/16/2019 M99.06 Segmental and somatic dysfunction of lower King, Tripp, DO, MPH extremity 02/12/2019 G89.21 Chronic pain due to trauma King, Tripp, DO, MPH 02/12/2019 G89.28 Other chronic postprocedural pain King, Tripp, DO, MPH 02/12/2019 M25.571 Pain in right ankle and joints of right foot King, Tripp , DO, MPH 02/12/2019 Z79.891 halfway (current) use of opiate analgesic King, Tripp , DO, MPH 02/12/2019 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 King, Tripp , DO, MPH 01/24/2019 G89.21 Chronic pain due to trauma King, Tripp, DO, MPH 01/24/2019 G89.28 Other chronic postprocedural pain King, Tripp, DO, MPH 01/24/2019 M25.571 Pain in right ankle and joints of right foot King, Tripp , DO, MPH 01/24/2019 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 Symptoms and complaints discussed and reviewed today. No significant changes in physical findings. Continue current medical pain management.M25.571 Pain in right ankle and joints of right footComments: Chronic. Symptoms and complaints discussed and reviewed today. No significant changes in physical findings. Continue current medical pain management.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New Labs:Urine Drug Screen, Ordered: 03/13/19Comments:Urine drug screen sample taken. Rapid Point of Care Cup was reviewed in office with patient. Will send out UDT Rapid to [facility] lab for confirmation testing. Urine Drug Testing (UDT) was done today to monitor opiate use and to monitor possible use of illicit substances. I will discuss the results at the next appointment from the [facility] lab.The following tests were ordered:6 AM, AMPH, JOSEPH, KATHI, BUP, CARIS, COCM, ETG, FENT, MCSHSG, OPI, OXY, PCP, TAPEN, XTSY, ZOLP. A urine drug test (UDT) using a rapid screen cup was ordered for this patient and collected on site today. Creatinine has been ordered as well for specimen validity, not for kidney function. Urine Drug Testing is a mandatory component of chronic opioid management, as part of the baseline assessment and ongoing re-assessment of opioid therapy. Per [place] [employer], [place] Non- Acute Pain Medical Treatment Guidelines, section F.3.d.i. This test is to be used in conjunction with other clinical information when decisions are to be made to continue, adjust or discontinue treatment. This information includes clinical observation, results of addiction screening, pill counts, and prescription drug monitoring reports. Preliminary UDT screen results are not final and should not be used to determine patient care or plan of treatment. This sample will be sent out for a more comprehensive quantitative confirmation LCMS study. It is part of the treatment process of prescribing controlled substances and is considered standard of care at this clinic.AllComments: Continue current medical pain management; injection therapy, osteopathic manipulation, PT / modalities, and consults as needed to manage chronic pain.Non - opioid pain management discussed and optionsdiscussed.Side effects discussed; anticipatory guidance given. Patient clearly understand and agree with all medical treatments and suggestions. All medicines prescribed are adequate and appropriate for this patient's complaint of pain, medical history, physical, and personal goals.Goals of Treatment are to provide adequate and appropriate multidisciplinary medical pain management to increase/ maintain patient's quality of life and functionality while maintaining satisfactory side effect profile andminimizing assistant terminal manager end-organ damage. Importance of regular nutrition throughout the day discussed.Activity as toleratedContinue with PCP Functional Status Description No Information Available Mental Status Description No Information Available Referrals Description No Information Available
--- OUTSIDE RECORDS SUMMARY | 2019-05-13 08:30 | XMS REPORT | Continuity of Care Document ---
:1975 External Reference #:[id number] Author Name Tripp King DO, MPH Address [address] [place] [address], [address] [place] [address] Care Team Providers Name Role Phone Alex Redd MD - Orthopaedic Care Team Information Configuration Management Administrator Surgery Ethan Juarez M.D. - Internal Care Team Information Configuration Management Administrator [phone] Medicine Problems Active Problems Provider Date Adult [...] Use Denies Drug Use Smoking Status Reviewed: 04/20/19 Patient is a current smoker, smokes every [...] Available Vital Signs Date Vital Result Comment 04/20/2019 12:04pm BP Systolic 130 mmHg BP Diastolic 78 mmHg Heart Rate 74 /min Respiratory Rate 20 /min Height 67 inches 5'7" Weight 198.00 lb Pain Level 8 Pain at this time. Pain Level With Medicine 7 on average with meds Pain Level Without Medicine 9 without meds Pain Level After Procedure 5 BP Systolic Recheck 132 mmHg Pulse: 88 BP Diastolic Recheck 84 mmHg Pulse: 88 BMI (Body Mass Index) 31.0 kg/m2 04/15/2019 9:06am BP Systolic 122 mmHg BP Diastolic 74 mmHg Heart Rate 76 /min Respiratory Rate 20 /min Height 67 inches 5'7" Weight 200.00 lb Pain Level 7 Pain at this time. Pain Level With Medicine 7 on average with meds Pain Level Without Medicine 9 without meds BMI (Body Mass Index) 31.3 kg/m2 Results Description No Information Available Procedures Date Code Description Status 03/16/2019 10861 Omt 1-2 Body Regions Completed 03/16/2019 55748 Injection For Nerve Block, Other Peripheral Nerve Or Completed Branch 03/16/2019 Arthrocentesis/Aspiration/Inj Of Major Joint Or Bursa W/ Completed Ultra 02/16/2019 28004 Omt 1-2 Body Regions Completed 02/16/2019 06565 Injection For Nerve Block, Other Peripheral Nerve Or Completed Branch 02/16/2019 Arthrocentesis/Aspiration/Inj Of Major Joint Or Bursa W/ Completed Ultra Medical Devices Description No Information Available Encounters Type Date Location Provider Dx Diagnosis Office Visit 04/15/2019 Main Office as Of Tripp King DO G89.21 Chronic pain due 9:15a 05/11/13 MPH to trauma M25.571 Pain in right ankle and joints of right foot Z79.891 [facility] (current) use of opiate analgesic 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 Office Visit 03/16/2019 12:15p Main Office as Tripp King G89.21 Chronic pain due Of 05/11/13 DO MPH to trauma M25.571 Pain in right ankle and joints of right foot M99.06 Segmental and somatic dysfunction of lower extremity M79.2 Neuralgia and neuritis, unspecified Office Visit 03/13/2019 10:00a Main Office as Tripp King G89.21 Chronic pain due Of 05/11/13 DO, MPH to trauma M25.571 Pain in right ankle and joints of right foot Z79.891 [facility] (current) use of opiate analgesic Z79.891 [facility] (current) use of opiate analgesic Office Visit 02/12/2019 10:15a Main Office as Tripp King G89.21 Chronic pain due Of 05/11/13 DO, MPH to trauma G89.28 Other chronic postprocedural pain M25.571 Pain in right ankle and joints of right foot 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 Office Visit 01/24/2019 1:45p Main Office as Tripp King G89.21 Chronic pain due Of 05/11/13 DO, MPH to trauma G89.28 Other chronic postprocedural pain M25.571 Pain in right ankle and joints of right foot Z79.891 [facility] (current) use of opiate analgesic Z71.89 Other specified counseling 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 Assessments Date Code Description Provider 04/20/2019 G89.21 Chronic pain due to trauma Tripp King DO, MPH 04/20/2019 M25.571 Pain in right ankle and joints of right foot Tripp King DO, MPH 04/20/2019 M99.06 Segmental and somatic dysfunction of lower KingTripp saavedra DO, MPH extremity 04/20/2019 M79.2 Neuralgia and neuritis, unspecified KingTripp saavedra DO, MPH 04/15/2019 G89.21 Chronic pain due to trauma Tripp King DO, MPH 04/15/2019 M25.571 Pain in right ankle and joints of right foot Tripp King DO, MPH 04/15/2019 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 Tripp King DO, MPH 04/15/2019 Z79.891 [facility] (current) use of opiate analgesic King, Tripp , DO, MPH 03/16/2019 G89.21 Chronic pain due to trauma King, Tripp, DO, MPH 03/16/2019 M25.571 Pain in right ankle and joints of right foot King, Tripp , DO, MPH 03/16/2019 M99.06 Segmental and somatic dysfunction of lower King, Tripp, DO, MPH extremity 03/16/2019 M79.2 Neuralgia and neuritis, unspecified King, Tripp, DO, MPH 03/13/2019 G89.21 Chronic pain due to trauma King, Tripp, DO, MPH 03/13/2019 M25.571 Pain in right ankle and joints of right foot King, Tripp , DO, MPH 03/13/2019 Z79.891 [facility] (current) use of opiate analgesic King, Tripp , DO, MPH 03/13/2019 Z79.891 [facility] (current) use of opiate analgesic King, Tripp [...] King, Tripp , DO, MPH 02/12/2019 Z79.891 [facility] (current) use of opiate analgesic King, Tripp , DO, MPH 02/12/2019 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 King, Tripp , DO, MPH 01/24/2019 G89.21 Chronic pain due to trauma King, Tripp, DO, MPH 01/24/2019 G89.28 Other chronic postprocedural pain King, Tripp, DO, MPH 01/24/2019 M25.571 Pain in right ankle and joints of right foot Tripp King DO MPH 01/24/2019 Z79.891 [facility] (current) use of opiate analgesic Tripp King DO, MPH 01/24/2019 Z71.89 Other specified counseling Tripp King DO, MPH 01/24/2019 Z79.891 [facility] (current) use of opiate analgesic Tripp King DO MPH Plan of Treatment Future Appointment(s):05/15/2019 9:00 am - Tripp King DO MPH at Main Office as Of 05/11/1400 - Tripp King DO MPHG89.21 Chronic pain due to traumaComments:Chronic. Symptoms and complaints discussed and reviewed today. No significant changes in physical findings. Continue current medical pain management.M25.571 Pain in right ankle and joints of right footComments: Injection therapy performed today.M99.06 Segmental and somatic dysfunction of lower extremityComments:Chronic. Symptoms and complaints discussed and reviewed today. Notable somatic dysfunctions, myofascial restrictions (MFR) warranting OMT. Patient is stable and comfortable when current medical therapyrendered. Osteopathic Manipulation, myofascial release (MFR) to limb, performed after evaluation.M79.2 Neuralgia and neuritis, unspecifiedComments:Chronic. Symptoms and complaints discussed and reviewed today. Continue current medical pain management. Injection therapy (nerve block - right anterior and medial ankle) today. Informed consent/refusal reviewed. See procedure sheet.AllComments: Continue current medical pain management; injection therapy, [...] while maintaining satisfactory side effect profile andminimizing longterm end-organ damage. Importance of regular nutrition throughout the day discussed.Activity as toleratedContinue with PCP Functional Status Description No Information Available Mental Status Description No Information Available Referrals Description No Information Available
--- OUTSIDE RECORDS SUMMARY | 2019-05-13 08:30 | XMS REPORT | Continuity of Care Document ---
:1975 External Reference #:[id number] Author Name Tripp King DO, MPH Address [address] [place] [address], [address] [place] [address] Care Team Providers Name Role Phone Alex Redd MD - Orthopaedic Care Team Information Supervisor [employer] Surgery Ethan Juarez M.D. - Internal Care Team Information Supervisor [employer] Medicine Problems Active Problems Provider Date Adult [...] Use Denies Drug Use Smoking Status Reviewed: 04/15/19 Patient is a current smoker, smokes every [...] Available Vital Signs Date Vital Result Comment 04/15/2019 9:06am BP Systolic 122 mmHg BP Diastolic 74 mmHg Heart Rate 76 /min Respiratory Rate 20 /min Height 67 inches 5'7" Weight 200.00 lb Pain Level 7 Pain at this time. Pain Level With Medicine 7 on average with meds Pain Level Without Medicine 9 without meds BMI (Body Mass Index) 31.3 kg/m2 03/16/2019 12:08pm BP Systolic 140 mmHg BP Diastolic 86 mmHg Heart Rate 74 /min Respiratory Rate 20 /min Height 67 inches 5'7" Weight 204.00 lb Pain Level 5 Pain at this time. Pain Level With Medicine 5 on average with meds Pain Level Without Medicine 9 without meds Pain Level After Procedure 3 BP Systolic Recheck 136 mmHg Pulse: 88 BP Diastolic Recheck 84 mmHg Pulse: 88 BMI (Body Mass Index) 31.9 kg/m2 Results Description No Information Available Procedures Date Code Description Status 03/16/2019 14937 Omt 1-2 Body Regions Completed 03/16/2019 48981 Injection For Nerve Block, Other Peripheral Nerve Or Completed Branch 03/16/2019 Arthrocentesis/Aspiration/Inj Of Major Joint Or Bursa W/ Completed Ultra 02/16/2019 79992 Omt 1-2 Body Regions Completed 02/16/2019 79109 Injection For Nerve Block, Other Peripheral Nerve Or Completed Branch 02/16/201904132 Arthrocentesis/Aspiration/Inj Of Major Joint Or Bursa W/ Completed Ultra Medical Devices Description No Information Available Encounters Type Date Location Provider Dx Diagnosis Office Visit 03/16/2019 Main Office as Of Tripp King DO G89.21 Chronic pain due 12:15p 05/11/13 MPH to trauma M25.571 Pain in right ankle and joints of right foot M99.06 Segmental and somatic dysfunction of lower extremity M79.2 Neuralgia and neuritis, unspecified Office Visit 03/13/2019 10:00a Main Office as Tripp King G89.21 Chronic pain due Of 05/11/13 DO, MPH to trauma M25.571 Pain in right ankle and joints of right foot Z79.891 [facility] (current) use of opiate analgesic 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 Office Visit 02/12/2019 10:15a Main Office as Tripp King G89.21 Chronic pain due Of 05/11/13 DO, MPH to trauma G89.28 Other chronic postprocedural pain M25.571 Pain in right ankle and joints of right foot Z79.891 [facility] (current) use of opiate analgesic 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 Office Visit 01/24/2019 1:45p Main Office as Tripp King, G89.21 Chronic pain due Of 05/11/13 , MPH to trauma G89.28 Other chronic postprocedural pain M25.571 Pain in right ankle and joints of right foot 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 Z71.89 Other specified counseling Z79.891 [facility] (current) use of opiate analgesic Assessments Date Code Description Provider 04/15/2019 G89.21 Chronic pain due to trauma Tripp King DO, MPH 04/15/2019 M25.571 Pain in right ankle and joints of right foot Tripp King DO, MPH 04/15/2019 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 Tripp King DO, MPH 04/15/2019 Z79.891 [facility] (current) use of opiate analgesic Tripp King DO, MPH 03/16/2019 G89.21 Chronic pain due to trauma Tripp King DO, MPH 03/16/2019 M25.571 Pain in right ankle and joints of right foot KingTripp saavedra DO, MPH 03/16/2019 M99.06 Segmental and somatic dysfunction of lower Tripp King DO, MPH extremity 03/16/2019 M79.2 Neuralgia and neuritis, unspecified Tripp King DO, MPH 03/13/2019 G89.21 Chronic pain due to trauma Tripp King DO, MPH 03/13/2019 M25.571 Pain in right ankle and joints of right foot KingTripp saavedra DO, MPH 03/13/2019 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 King, Tripp , DO, MPH 03/13/2019 Z79.891 [facility] (current) use of opiate analgesic King, Tripp [...] King, Tripp , DO, MPH 02/12/2019 Z79.891 [facility] (current) use of opiate analgesic King, Tripp , DO, MPH 02/12/2019 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 King, Tripp , DO, MPH 01/24/2019 G89.21 Chronic pain due to trauma King, Tripp, DO, MPH 01/24/2019 G89.28 Other chronic postprocedural pain King, Tripp, DO, MPH 01/24/2019 M25.571 Pain in right ankle and joints of right foot King, Tripp , DO, MPH 01/24/2019 Z79.891 [facility] (current) use of opiate analgesic King, Tripp , DO, MPH 01/24/2019 Z71.89 Other specified counseling King, Tripp, DO, MPH 01/24/2019 Z79.891 [facility] (current) use of opiate analgesic King, Tripp , DO, MPH Plan of Treatment Future Appointment(s):04/20/2019 12:15 pm - Tripp King DO MPH at Main Office as Of 05/11/1401 9:00 am - Tripp King DO MPH at Main Office as Of 05/11/1400 - Tripp King DO, MPHG89.21 Chronic pain due to traumaComments:Chronic. Symptoms and complaints discussed and reviewed today. No significant changes in physical findings. Continue current medical pain management.M25.571 Pain in right ankle and joints of right footComments: Chronic. Symptoms and complaints discussed and reviewed today. No significant changes in physical findings. Continue current medical pain management.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New Labs:Urine Drug Screen, Ordered: 04/15/19Comments:Urine drug screen sample taken. Rapid Point of [...] and ongoing re-assessment of opioid therapy. Per [place] [employer], [place] Non- Acute Pain Medical Treatment Guidelines, section [...] while maintaining satisfactory side effect profile andminimizing retirement end-organ damage. Importance of regular nutrition throughout the day discussed.Activity as toleratedContinue with PCP Functional Status Description No Information Available Mental Status Description No Information Available Referrals Description No Information Available
--- OUTSIDE RECORDS SUMMARY | 2019-05-13 08:30 | XMS REPORT | Continuity of Care Document ---
:1975 External Reference #:[id number] Author Name Tripp King DO, MPH Address [address] [place] [address], [address] [place] [address] Care Team Providers Name Role Phone Alex Redd MD - Orthopaedic Care Team Information Music Journalist Surgery Ethan Juarez M.D. - Internal Care Team Information Music Journalist [phone] Medicine Problems Active Problems Provider Date Adult [...] Use Denies Drug Use Smoking Status Reviewed: 03/16/19 Patient is a current smoker, smokes every [...] Available Vital Signs Date Vital Result Comment 03/16/2019 12:08pm BP Systolic 140 mmHg BP [...] 88 BMI (Body Mass Index) 31.9 kg/m2 03/13/2019 9:17am BP Systolic 126 mmHg BP Diastolic 78 mmHg Heart Rate 76 /min Respiratory Rate 20 /min Height 67 inches 5'7" Weight 206.00 lb Pain Level 6 Pain at this time. Pain Level With Medicine 5 on average with meds Pain Level Without Medicine 9 without meds BMI (Body Mass Index) 32.3 kg/m2 Results Description No Information Available Procedures Date Code Description Status 02/16/2019 62709 Omt 1-2 Body Regions Completed 02/16/2019 18299 Injection For Nerve Block, Other Peripheral Nerve Or Completed Branch 02/16/2019 85754 Arthrocentesis/Aspiration/Inj Of Major Joint Or Bursa W/ Completed Ultra Medical Devices Description No Information Available Encounters Type Date Location Provider Dx Diagnosis Office Visit 02/12/2019 Main Office as Of Tripp King DO, G89.21 Chronic pain due 10:15a 05/11/13 MPH to trauma G89.28 Other chronic postprocedural pain M25.571 Pain in right ankle and joints of right foot 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 Z79.891 senior care (current) use of opiate analgesic Office Visit 01/24/2019 1:45p Main Office as Tripp King G89.21 Chronic pain due Of 05/11/13 , MPH to trauma G89.28 Other chronic postprocedural pain M25.571 Pain in right ankle and joints of right foot Z79.891 senior care (current) use of opiate analgesic Z71.89 Other specified counseling Z79.891 senior care (current) use of opiate analgesic Assessments Date Code Description Provider 03/16/2019 G89.21 Chronic pain due to trauma [...] King, Tripp , DO, MPH 03/13/2019 Z79.891 senior care (current) use of opiate analgesic King, Tripp , DO, MPH 03/13/2019 Z79.891 senior care (current) use of opiate analgesic King, Tripp [...] King, Tripp , DO, MPH 02/12/2019 Z79.891 senior care (current) use of opiate analgesic King, Tripp , DO, MPH 02/12/2019 Z79.891 senior care (current) use of opiate analgesic King, Tripp , DO, MPH 01/24/2019 G89.21 Chronic pain due to trauma King, Tripp, DO, MPH 01/24/2019 G89.28 Other chronic postprocedural pain King, Tripp, DO, MPH 01/24/2019 M25.571 Pain in right ankle and joints of right foot Tripp King DO MPH 01/24/2019 Z79.891 senior care (current) use of opiate analgesic Tripp King DO MPH 01/24/2019 Z71.89 Other specified counseling Tripp King DO MPH 01/24/2019 Z79.891 senior care (current) use of opiate analgesic Tripp King DO MPH Plan of Treatment Future Appointment(s):04/15/2019 9:15 am - Tripp King DO MPH at Main Office as Of 05/11/1411 - Tripp King DO, MPHG89.21 Chronic pain due to traumaComments:Chronic. Symptoms and complaints discussed and reviewed today. No significant changes in physical findings. Continue current medical pain management.M25.571 Pain in right ankle and joints of right footComments: Injection therapy today - Right ankle. Informed consent given/refusal reviewed. See procedure sheet. Injection therapy performed under musculoskeletal ultrasound for demarcation of pertinent structurefor needle guidance for injection.M99.06 Segmental and somatic dysfunction of lower extremityComments: Chronic. Symptoms and complaints discussed and reviewed today. Notable somatic dysfunctions, myofascial restrictions (MFR) warranting OMT. Patient is stable and comfortable when current medical therapyrendered. Osteopathic Manipulation , myofascial release (MFR) to limb, performed after evaluation.M79.2 Neuralgia and neuritis, unspecifiedComments:Chronic. Symptoms and complaints discussed and reviewed today. Continue current medical pain management. Injection therapy (nerve block - right posterior tibial nerve)/tarsel tunnel today. Informed consent/refusal reviewed. See procedure sheet.AllComments:Continue current medical pain management; injection therapy, osteopathic manipulation, PT / modalities, and consults as needed to manage chronic pain.Non - opioid pain management discussed and optionsdiscussed. Injection therapy performed today.Side effects discussed; anticipatory guidance given. Patient clearly understand and agree with all medical treatments and suggestions. All medicines prescribed are adequate and appropriate for this patient's complaint of pain, medical history, physical, andpersonal goals.Goals of Treatment are to provide adequate and appropriate multidisciplinary medical pain management to increase/ maintain patient's quality of life and functionality while maintaining satisfactory side effect profile and minimizing halfway end-organ damage. Importance of regular nutrition throughout the day discussed.Activity as toleratedContinue with PCP Functional Status Description No Information Available Mental Status Description No Information Available Referrals Description No Information Available
[2019-05-13 08:44] VITALS: BP 120/93
--- NOTE | 2019-05-13 09:02 | UC ---
Knee Pain HPI - HPI Summary HPI Summary: The patient is a 43-year-old female who twisted her right knee yesterday when she misstepped going down stairs. Her right knee began swelling within minutes and within the first hour she was unable to bear weight are fully extend it. - History of Current Complaint Chief Complaint: UCLowerExtremity Stated Complaint: RT KNEE PAIN Time Seen by Provider: 05/13/19 08:44 Hx Obtained From: Patient Hx Last Menstrual Period: hysterectomy Onset/Duration: Sudden Onset Severity Initially: Moderate Severity Currently: Moderate Pain Intensity: 7 Pain Scale Used: 0-10 Numeric Character: Throbbing Aggravating Factor(s): Movement, Weight Bearing Alleviating Factor(s): Rest Associated Signs And Symptoms: Positive: Swelling Able to Bear Weight: No Legs: 1 - large effusion. Unable to fully extend or flex. No lateral joint tenderness - Allergies/Home Medications Allergies/Adverse Reactions: Allergies Allergy/AdvReac Type Severity Reaction Status Date / Time morphine Allergy Intermediate CAUSES Verified 02/01/19 10:33 INCREASED PAIN PMH/Surg Hx/FS Hx/Imm Hx Previously Healthy: Yes - chronic right ankle pain/5 surguries/nerve damage Cardiovascular History: Hypertension Other History Of: Negative For: Anticoagulant Therapy - Surgical History Surgical History: Yes Surgery Procedure, Year, and Place: TRIMALLEOLAR FX RIGHT ANKLE REPAIR 07/24. 1994 LT OOPHERECTOMY. [id number] Gall bladder out;2005 hysterectomy tubal ligation;1998 , bilat ankles TENDON REPAIR. LENGHTENING at age 6. april 2016 right ankle repair , hysterectomy approx 2014 - Family History Known Family History: Positive: None, Cardiac Disease - [place], Non-Contributory - Social History Alcohol Use: Occasionally Alcohol Amount: "couple times a month" Substance Use Type: None Smoking Status (MU): Heavy Every Day Tobacco Smoker Type: Cigarettes Amount Used/How Often: 1/2ppd Length of Time of Smoking/Using Tobacco: 20 years Have You Smoked in the Last Year: Yes Household Exposure Type: Cigarettes Review of Systems All Other Systems Reviewed And Are Negative: Yes Constitutional: Positive: Negative Skin: Positive: Negative Eyes: Positive: Negative ENT: Positive: Negative Respiratory: Positive: Negative Cardiovascular: Positive: Negative Gastrointestinal: Positive: Negative Genitourinary: Positive: Negative Motor: Positive: Negative Neurovascular: Positive: Negative Musculoskeletal: Positive: Arthralgia - rigth knee, Decreased ROM, Edema Neurological: Positive: Negative Psychological: Positive: Negative Physical Exam Triage Information Reviewed: Yes Appearance: Well-Appearing, No Pain Distress, Well-Nourished Vital Signs: Initial Vital Signs Temp 98.2 F 05/13/19 08:33 Pulse 94 05/13/19 08:33 Resp 18 05/13/19 08:33 BP 120/93 05/13/19 08:33 Pulse Ox 98 05/13/19 08:33 Vital Signs Reviewed: Yes Eyes: Positive: Conjunctiva Clear ENT: Positive: Hearing grossly normal, Uvula midline. Negative: Nasal congestion, Nasal drainage, Tonsillar swelling, Tonsillar exudate, Muffled voice , Hoarse voice Dental Exam: Normal Neck: Positive: Supple, Nontender, No Lymphadenopathy Respiratory: Positive: Lungs clear, Normal breath sounds, No respiratory distress, No accessory muscle use Cardiovascular: Positive: RRR, No Murmur Abdominal Exam: Normal Abdomen Description: Positive: Nontender Bowel Sounds: Positive: Absent Musculoskeletal: Positive: Strength Intact, ROM Intact, No Edema Neurological: Positive: Alert Psychological Exam: Normal Skin Exam: Normal Diagnostics - Radiology No standard instances Radiology Interpretation Completed By: Radiologist Summary of Radiographic Findings: LARGE JOINT EFFUSION. QUESTIONABLE LINEAR LUCENCY OF THE MEDIAL TIBIAL PLATEAU WHICH MAY REFLECT A NONDISPLACED FRACTURE IN THE CORRECT CLINICAL SETTING. RECOMMEND CORRELATION WITH SITE OF PAIN. Knee Pain Course/Dx - Course Course Of Treatment: patient with minimal medial joint line tenderness I suspect an ACL tear D/W PA at [facility] they will determine proper imaging study when they see her - Differential Dx/Diagnosis Provider Diagnosis: Internal derangement of right knee Discharge ED - Sign-Out/Discharge Documenting (check all that apply): Patient Departure All imaging exams completed and their final reports reviewed: Yes - Discharge Plan Condition: Stable Disposition: HOME Patient Education Materials: Swollen Knee Joint (ED) Forms: *Work Release Referrals: Erasmo Gardiner MD [Medical Doctor] - As Soon As Possible Additional Instructions: knee immobilizer crutches with not wt bearing rest ice continue ibuprofen - Billing Disposition and Condition Condition: STABLE Disposition: Home
== END 2019-05-13 09:48 | disposition home or self-care (01) ==
LOC: UCEAST 08:23
DX: M23.91 Unspecified internal derangement of right knee (principal); M25.461 Effusion, right knee; I10 Essential (primary) hypertension; F17.210 Nicotine dependence, cigarettes, uncomplicated; Z88.5 Allergy status to narcotic agent; X50.0XXA Overexertion from strenuous movement or load, initial encounter; Y92.9 Unspecified place or not applicable
CPT/HCPCS: 99213; G0463

== ENCOUNTER 2019-06-18 08:46 | Emergency (ER) | payer OTHER ==
--- OUTSIDE RECORDS SUMMARY | 2019-06-18 08:53 | XMS REPORT | Continuity of Care Document ---
:1975 External Reference #:[id number] Author Name Tripp King DO, MPH Address [address] [place] [address], [address] [place] [address] Care Team Providers Name Role Phone Alex Redd MD - Orthopaedic Care Team Information Passport Application Examiner [phone] Surgery Ethan Juarez M.D. - Internal Care Team Information Passport Application Examiner Medicine Problems Active Problems Provider Date Adult [...] Use Denies Drug Use Smoking Status Reviewed: 05/15/19 Patient is a current smoker, smokes every day Allergies, Adverse Reactions, Alerts Active Allergies Reaction Severity Comments Date Morphine 01/24/2019 Medications Active Medications SIG Qnty Indications Ordering Provider Date Oxycodone HCL si by mouth 60tabs Tripp Kign DO, 01/24/2019 5mg every 8 to 12 [...] Available Vital Signs Date Vital Result Comment 05/15/2019 11:00am BP Systolic 130 mmHg BP Diastolic 84 mmHg Heart Rate 82 /min Respiratory Rate 20 /min Height 67 inches 5'7" Weight 198.00 lb Pain Level 7 Pain at this time. Pain Level With Medicine 6 on average with meds Pain Level Without Medicine 10 without meds BMI (Body Mass Index) 31.0 kg/m2 04/20/2019 12:04pm BP Systolic 130 mmHg BP [...] 88 BMI (Body Mass Index) 31.0 kg/m2 Results Description No Information Available Procedures Date Code Description Status 04/20/2019 74164 Omt 1-2 Body Regions Completed 04/20/2019 08136 U/S Guidance For Needle Placement Completed 04/20/2019 63412 Injection For Nerve Block, Other Peripheral Nerve Or Completed Branch 04/20/2019 12435 Inject/Drain Arthrocentesis Intermediate Joint/Bursa Completed 03/16/2019 91443 Omt 1-2 Body Regions Completed 03/16/2019 67700 Injection For Nerve Block, Other Peripheral Nerve Or Completed Branch 03/16/201968581 Arthrocentesis/Aspiration/Inj Of Major Joint Or Bursa W/ Completed Ultra 02/16/2019 53262 Omt 1-2 Body Regions Completed 02/16/2019 03203 Injection For Nerve Block, Other Peripheral Nerve Or Completed Branch 02/16/201902809 Arthrocentesis/Aspiration/Inj Of Major Joint Or Bursa W/ Completed Ultra Medical Devices Description No Information Available Encounters Type Date Location Provider Dx Diagnosis Office Visit 04/20/2019 Main Office as Of Tripp King DO, G89.21 Chronic pain due 12:15p 05/11/13 MPH to trauma M25.571 Pain in right ankle and joints of right foot M99.06 Segmental and somatic dysfunction of lower extremity M79.2 Neuralgia and neuritis, unspecified Office Visit 04/15/2019 9:15a Main Office as Tripp King G89.21 Chronic pain due Of 05/11/13 DO, MPH to trauma M25.571 Pain in right ankle and joints of right foot Z79.891 care home (current) use of opiate analgesic 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 Office Visit [...] ankle and joints of right foot 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 Z79.891 care home (current) use of opiate analgesic Office Visit 02/12/2019 10:15a Main Office as Tripp King G89.21 Chronic pain due Of 05/11/13 DO, MPH to trauma G89.28 Other chronic postprocedural pain M25.571 Pain in right ankle and joints of right foot Z79.891 care home (current) use of opiate analgesic Z79.891 care home (current) use of opiate analgesic Office Visit 01/24/2019 1:45p Main Office as Tripp King G89.21 Chronic pain due Of 05/11/13 DO, MPH to trauma G89.28 Other chronic postprocedural pain M25.571 Pain in right ankle and joints of right foot 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 Z71.89 Other specified counseling Z79.891 care home (current) use of opiate analgesic Assessments Date Code Description Provider 05/15/2019 G89.21 Chronic pain due to trauma Tripp King DO MPH 05/15/2019 M25.571 Pain in right ankle and joints of right foot King, Tripp , DO, MPH 05/15/2019 M79.2 Neuralgia and neuritis, unspecified King, Tripp, DO, MPH 04/20/2019 G89.21 Chronic pain due to trauma King, Tripp, DO, MPH 04/20/2019 M25.571 Pain in right ankle and joints of right foot King, Tripp , DO, MPH 04/20/2019 M99.06 Segmental and somatic dysfunction of lower King, Tripp, DO, MPH extremity 04/20/2019 M79.2 Neuralgia and neuritis, unspecified King, Tripp, DO, MPH 04/15/2019 G89.21 Chronic pain due to trauma King, Tripp, DO, MPH 04/15/2019 M25.571 Pain in right ankle and joints of right foot King, Tripp , DO, MPH 04/15/2019 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 King, Tripp , DO, MPH 04/15/2019 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 King, Tripp , DO, MPH 03/16/2019 G89.21 Chronic pain due to trauma King, Tripp, DO, MPH 03/16/2019 M25.571 Pain in right ankle and joints of right foot Ikng, Tripp , DO, MPH 03/16/2019 M99.06 Segmental and somatic dysfunction of lower King, Tripp, DO, MPH extremity 03/16/2019 M79.2 Neuralgia and neuritis, unspecified King, Tripp, DO, MPH 03/13/2019 G89.21 Chronic pain due to trauma King, Tripp, DO, MPH 03/13/2019 M25.571 Pain in right ankle and joints of right foot King, Tripp , DO, MPH 03/13/2019 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 King, Tripp , DO, MPH 03/13/2019 Z79.891 care home (current) use of opiate analgesic King, Tripp , DO, MPH 02/16/2019 G89.21 Chronic pain due to trauma King, Tripp, DO, MPH 02/16/2019 M25.571 Pain in right ankle and joints of right foot KingTripp saavedra DO, MPH 02/16/2019 M99.06 Segmental and somatic dysfunction of lower Tripp King DO, MPH extremity 02/12/2019 G89.21 Chronic pain due to trauma Tripp King DO, MPH 02/12/2019 G89.28 Other chronic postprocedural pain Tripp King DO, MPH 02/12/2019 M25.571 Pain in right ankle and joints of right foot KingTripp saavedra DO, MPH 02/12/2019 Z79.891 care home (current) use of opiate analgesic Tripp King DO, MPH 02/12/2019 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 Tripp King DO, MPH 01/24/2019 G89.21 Chronic pain due to trauma Tripp King DO, MPH 01/24/2019 G89.28 Other chronic postprocedural pain Tripp King DO, MPH 01/24/2019 M25.571 Pain in right ankle and joints of right foot KingTripp saavedra DO, MPH 01/24/2019 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 Symptoms and complaints discussed and reviewed today. No significant changes in physical findings. Continue current medical pain management.M25.571 Pain in right ankle and joints of right footComments: Chronic. Symptoms and complaints discussed and reviewed today. No significant changes in physical findings. Continue current medical pain management.M79.2 Neuralgia and neuritis, unspecifiedComments:Chronic. Symptoms and complaints discussed and reviewed today. No significant changes in physical findings. Continue current medical pain management.AllComments:Continue current medical pain management; injection therapy, osteopathic [...] while maintaining satisfactory side effect profile andminimizing fci end-organ damage. Importance of regular nutrition throughout the day discussed.Activity as toleratedContinue with PCP Functional Status Description No Information Available Mental Status Description No Information Available Referrals Description No Information Available
--- OUTSIDE RECORDS SUMMARY | 2019-06-18 08:53 | XMS REPORT | Continuity of Care Document ---
:1975 External Reference #:[id number] Author Name Riaz Mahoney MD (transmitted by agent of provider Zenaida Borrero) Address [address] [place] [address] Care Team Providers Name Role Phone Ethan Juarez MD - Internal Care Team Information [employer] Medicine Problems Active Problems Provider Date Closed bimalleolar fracture Alirio Segal M.D. Onset: 07/16/2015 Complex regional pain syndrome, type II, lower Alirio Segal M.D. Onset: limb Social History Type Date Description Comments Sex Unknown Tobacco Use Start: Unknown Heavy tobacco smoker (more than 10 cigarettes/day) Tobacco Use Start: Unknown 1 PPD Smoking Status Reviewed: 05/15/19 1 PPD ETOH Use Occasionally consumes alcohol Tobacco Use Start: Unknown Heavy tobacco smoker (more than 10 cigarettes/day) Recreational Drug Use Denies Drug Use Exercise Type/Frequency Does not exercise Allergies, Adverse Reactions, Alerts Active Allergies Reaction Severity Comments Date Morphine Pain increases 07/16/2015 Inactive Allergies NKDA 07/16/2015 Medications Active Medications SIG Qnty Indications Ordering Provider Date Meloxicam 1 by mouth twice 28tabs M25.461 Riaz Mahoney MD 05/15/2019 7.5mg Tablets a day Lisinopril 1 by mouth every Unknown 5mg Tablets day Metoprolol Succinate Unknown ER Ibuprofen 200 400-600mg every Unknown 200mg 6 hours as Tablets needed for pain. Nifedipine ER 1 tab at night Unknown 60mg Tablets ER 24HR Oxycodone HCL 1 tabs by mouth Unknown 5mg once a day Capsules Immunizations Description No Information Available Vital Signs Date Vital Result Comment 05/15/2019 9:41am Height 67 inches 5'7" Weight 196.00 lb stated Heart Rate 96 /min BP Systolic 152 mmHg BP Diastolic 102 mmHg Respiratory Rate 18 /min Body Temperature 97.9 F Pain Level 6 BMI (Body Mass Index) 30.7 kg/m2 09/18/2018 8:08am Height 67 inches 5'7" Heart Rate 105 /min BP Systolic 126 mmHg BP Diastolic 90 mmHg Respiratory Rate 16 /min Body Temperature 97.1 F Pain Level 5 Results Description No Information Available Procedures Description No Information Available Medical Devices Description No Information Available Encounters Description No Information Available Assessments Date Code Description Provider 05/15/2019 S83.511A Sprain of anterior cruciate ligament of right Riaz Mahoney MD knee, initial encounter 05/15/2019 M25.461 Effusion, right knee Riaz Mahoney MD Plan of Treatment 05/15/2019 - Riaz Mahoney, MDS83.511A Sprain of anterior cruciate ligament of right knee, initial encounterNew Xrays:MRI Knee Right W/O, Ordered: Follow up:after testing / imaging is [id number] Effusion, right kneeNew Medication:Meloxicam 7.5 mg - 1 by mouth twice a day Functional Status Description No Information Available Mental Status Description No Information Available Referrals Description No Information Available
--- OUTSIDE RECORDS SUMMARY | 2019-06-18 08:53 | XMS REPORT | Continuity of Care Document ---
:1975 External Reference #:[id number] Author Name Tripp King DO, MPH Address [address] [place] [address], [address] [place] [address] Care Team Providers Name Role Phone Alex Redd MD - Orthopaedic Care Team Information [employer] Surgery Ehtan Juarez M.D. - Internal Care Team Information [employer] [phone] Medicine Problems Active Problems Provider Date Adult [...] Use Denies Drug Use Smoking Status Reviewed: 06/12/19 Patient is a current smoker, smokes every [...] 60mg day as directed Tablets ER 24HR Xanax si by mouth Unknown 0.25mg Tablets every 12 hours as needed Omeprazole 1 by mouth every Unknown 40mg day Capsules DR Sandra Randolph 1 puffs twice a Unknown day 100-50mcg/Dose Aerosol History Medications Medrol medication to be 21units Tripp King DO, 01/24/2019 - 4mg TBPK taken as directed MPH 02/12/2019 Immunizations Description No Information Available Vital Signs Date Vital Result Comment 06/12/2019 10:17am BP Systolic 130 mmHg BP Diastolic 78 mmHg Heart Rate 76 /min Respiratory Rate 20 /min Height 67 inches 5'7" Weight 197.00 lb Pain Level 7 Pain at this time. Pain Level With Medicine 6 on average with meds Pain Level Without Medicine 9 without meds BMI (Body Mass Index) 30.9 kg/m2 05/15/2019 11:00am BP Systolic 130 mmHg BP Diastolic 84 mmHg Heart Rate 82 /min Respiratory Rate 20 /min Height 67 inches 5'7" Weight 198.00 lb Pain Level 7 Pain at this time. Pain Level With Medicine 6 on average with meds Pain Level Without Medicine 10 without meds BMI (Body Mass Index) 31.0 kg/m2 Results Description No Information Available Procedures Date Code Description Status 04/20/2019 04708 Omt 1-2 Body Regions Completed 04/20/2019 51715 U/S Guidance For Needle Placement Completed 04/20/2019 17562 Injection For Nerve Block, Other Peripheral Nerve Or Completed Branch 04/20/201988076 Inject/Drain Arthrocentesis Intermediate Joint/Bursa Completed 03/16/2019 70294 Omt 1-2 Body Regions Completed 03/16/2019 17212 Injection For Nerve Block, Other Peripheral Nerve Or Completed Branch 03/16/201901705 Arthrocentesis/Aspiration/Inj Of Major Joint Or Bursa W/ Completed Ultra 02/16/2019 82746 Omt 1-2 Body Regions Completed 02/16/2019 89040 Injection For Nerve Block, Other Peripheral Nerve Or Completed Branch 02/16/2019 Arthrocentesis/Aspiration/Inj Of Major Joint Or Bursa W/ Completed Ultra Medical Devices Description No Information Available Encounters Type Date Location Provider Dx Diagnosis Office Visit 05/15/2019 Main Office as Of Tripp King DO, G89.21 Chronic pain due 11:30a 05/11/13 MPH to trauma M25.571 Pain in right ankle and joints of right foot M79.2 Neuralgia and neuritis, unspecified Office Visit 04/20/2019 12:15p Main Office as Tripp King G89.21 [...] ankle and joints of right foot Z79.891 longterm (current) use of opiate analgesic 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 Office [...] ankle and joints of right foot Z79.891 longterm (current) use of opiate analgesic Z79.891 longterm (current) use of opiate analgesic Office Visit 02/12/2019 10:15a Main Office as Tripp King G89.21 Chronic pain due Of 05/11/13 DO, MPH to trauma G89.28 Other chronic postprocedural pain M25.571 Pain in right ankle and joints of right foot Z79.891 longterm (current) use of opiate analgesic Z79.891 longterm (current) use of opiate analgesic Office Visit 01/24/2019 1:45p Main Office as Tripp King G89.21 Chronic pain due Of 05/11/13 DO, MPH to trauma G89.28 Other chronic postprocedural pain M25.571 Pain in right ankle and joints of right foot Z79.891 longterm (current) use of opiate analgesic Z71.89 Other specified counseling Z79.891 longterm (current) use of opiate analgesic Assessments Date Code Description Provider 06/12/2019 G89.21 Chronic pain due to trauma King, Tripp, DO, MPH 06/12/2019 M25.571 Pain in right ankle and joints of right foot King, Tripp , DO, MPH 06/12/2019 Z79.891 longterm (current) use of opiate analgesic King, Tripp , DO, MPH 06/12/2019 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 King, Tripp , DO, MPH 05/15/2019 G89.21 Chronic pain due to trauma King, Tripp, DO, MPH 05/15/2019 M25.571 Pain in right ankle [...] King, Tripp , DO, MPH 04/15/2019 Z79.891 longterm (current) use of opiate analgesic King, Tripp , DO, MPH 04/15/2019 Z79.891 longterm (current) use of opiate analgesic King, Tripp [...] right ankle and joints of right foot Kign, Tripp , DO, MPH 03/13/2019 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 King, Tripp , DO, MPH 03/13/2019 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 King, [...] Tripp , DO, MPH 02/12/2019 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 King, Tripp , DO, MPH 02/12/2019 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 King, Tripp , DO, MPH 01/24/2019 G89.21 Chronic pain due to trauma King, Tripp, DO, MPH 01/24/2019 G89.28 Other chronic postprocedural pain King, Tripp, DO, MPH 01/24/2019 M25.571 Pain in right ankle and joints of right foot King, Tripp , DO, MPH 01/24/2019 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 Symptoms and complaints discussed and reviewed today. No significant changes in physical findings. Continue current medical pain management.M25.571 Pain in right ankle and joints of right footComments: Chronic. Symptoms and complaints discussed and reviewed today. No significant changes in physical findings. Continue current medical pain management.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New Labs:Urine Drug Screen, Ordered: 06/12/19Comments:Urine drug screen sample taken. Rapid Point of [...] and ongoing re-assessment of opioid therapy. Per [place] [employer], [place] Non- Acute Pain Medical Treatment Guidelines, section [...] while maintaining satisfactory side effect profile andminimizing residential end-organ damage. Importance of regular nutrition throughout the day discussed.Activity as toleratedContinue with PCP Functional Status Description No Information Available Mental Status Description No Information Available Referrals Description No Information Available
--- OUTSIDE RECORDS SUMMARY | 2019-06-18 08:53 | XMS REPORT | Continuity of Care Document ---
:1975 External Reference #:[id number] Author Name Riaz Mahoney MD (transmitted by agent of provider Karen Weber) Address [address] [place] [address] Care Team Providers Name Role Phone Ethan Juarez MD - Internal Care Team Information [employer] [phone] Medicine Problems Active Problems Provider Date Closed bimalleolar fracture Alirio Segal M.D. Onset: 07/16/2015 Complex regional pain syndrome, type II, lower Alirio Segal M.D. Onset: limb Closed fracture of upper end of tibia Riaz Mahoney MD Onset: 06/04/2019 Social History Type Date Description Comments Sex Unknown Tobacco Use Start: Unknown Heavy tobacco smoker (more than 10 cigarettes/day) Tobacco Use Start: Unknown 1 PPD Smoking Status Reviewed: 06/04/19 1 PPD ETOH Use Occasionally consumes alcohol Tobacco Use Start: Unknown Heavy tobacco smoker (more than 10 cigarettes/day) Recreational Drug Use Denies Drug Use Exercise Type/Frequency Does not exercise Allergies, Adverse Reactions, Alerts Active Allergies Reaction Severity Comments Date Morphine Pain increases 07/16/2015 Inactive Allergies NKDA 07/16/2015 Medications Active Medications SIG Qnty Indications Ordering Provider Date Knee Scooter use for S82.101D Riaz Mahoney MD 06/04/2019 non-weightbearin g Meloxicam 1 by mouth twice 28tabs M25.461 Riaz Mahoney MD 05/15/2019 7.5mg Tablets a day Lisinopril 1 by mouth every Unknown 5mg Tablets day Metoprolol Succinate 25mg per day Unknown ER Ibuprofen 200 400-600mg every Unknown 200mg 6 hours as Tablets needed for pain. Nifedipine ER 1 tab at night Unknown 60mg Tablets ER 24HR Oxycodone HCL 1 tabs by mouth Unknown 5mg once a day Capsules Alprazolam 30 min prior to Unknown 1mg Tablets procedure, please do not drive Immunizations Description No Information Available Vital Signs Date Vital Result Comment 06/04/2019 8:25am Height 67 inches 5'7" Weight 196.00 lb Heart Rate 72 /min BP Systolic 126 mmHg BP Diastolic 90 mmHg Respiratory Rate 12 /min Body Temperature 98.1 F Pain Level 5 BMI (Body Mass Index) 30.7 kg/m2 05/15/2019 9:41am Height 67 inches 5'7" Weight 196.00 lb stated Heart Rate 96 /min BP Systolic 152 mmHg BP Diastolic 102 mmHg Respiratory Rate 18 /min Body Temperature 97.9 F Pain Level 6 BMI (Body Mass Index) 30.7 kg/m2 Results Description No Information Available Procedures Description No Information Available Medical Devices Description No Information Available Encounters Type Date Location Provider Dx Diagnosis Office Visit 05/15/2019 [facility] Riaz Mahoney, S83.511A Sprain of 9:30a at [place] anterior cruciate ligament of right knee, init M25.461 Effusion, right knee Assessments Date Code Description Provider 06/04/2019 S82.101A Unspecified fracture of upper end of right Riaz Mahoney MD tibia, initial encounter for closed fracture 05/15/2019 S83.511A Sprain of anterior cruciate ligament of right Riaz Mahoney MD knee, initial encounter 05/15/2019 M25.461 Effusion, right knee Riaz Mahoney MD Plan of Treatment Future Appointment(s):07/08/2019 8:30 am - Riaz Mahoney MD at [facility] at [id number]/04/2019 - Riaz Mahoney MDS82.101A Unspecified fracture of upper end of right tibia, initial encounter for closed fractureNew Xrays:Kneeright 4+ VWS, Ordered: 06/04/19Follow up:Follow Up: 1 month Functional Status Description No Information Available Mental Status Description No Information Available Referrals Description No Information Available
[2019-06-18 08:57] VITALS: BP 122/83
[2019-06-18 09:21] LABS: Influenza A Molecular Negative (Negative); Influenza B Molecular Negative (Negative)
--- NOTE | 2019-06-18 10:09 | UC ---
FLU HPI - HPI Summary HPI Summary: 43yo female presenting with sore throat, shortness of breath, and chills that began last night. Notes mild dry cough. Unsure of fever. Denies n/v. Denies wheezing. Denies h/o asthma and copd. Patient is a smoker. - History of Current Complaint Chief Complaint: UCRespiratory Stated Complaint: SHORTNESS OF BREATH,FEVER,SORE THROAT Time Seen by Provider: 06/18/19 10:08 Hx Obtained From: Patient Hx Last Menstrual Period: hysterectomy Pain Intensity: 0 - Allergy/Home Medications Allergies/Adverse Reactions: Allergies Allergy/AdvReac Type Severity Reaction Status Date / Time morphine Allergy Intermediate CAUSES Verified 06/18/19 08:58 INCREASED PAIN Home Medications: Home Medications Metoprolol Tartrate TAB* [Lopressor TAB*] 25 mg PO DAILY 02/05/17 [History Confirmed 06/18/19] NIFEdipine ER TAB* [Procardia Xl TAB*] 60 mg PO BEDTIME 05/11/17 [History Confirmed 06/18/19] Lisinopril TAB* [Prinivil TAB 5 MG*] 5 mg PO QAM 06/12/17 [History Confirmed 01/27] Ibuprofen [Advil] 600 mg PO ONCE PRN 05/13/19 [History Confirmed 06/18/19] Oxycodone HCl 1 tab PO DAILY 05/13/19 [History Confirmed 06/18/19] Albuterol HFA INHALER* [Ventolin HFA Inhaler*] 1 - 2 puff INH Q6H PRN #1 mdi 01/27 [Rx] PMH/Surg Hx/FS Hx/Imm Hx Cardiovascular History: Hypertension Other History Of: Negative For: Anticoagulant Therapy - Surgical History Surgical History: Yes Surgery Procedure, Year, and Place: TRIMALLEOLAR FX RIGHT ANKLE REPAIR 07/24. 1994 LT OOPHERECTOMY. Appendectomy. 2000Gall bladder out. 2005 Hysterectomy. tubal ligation;1998. bilat ankles TENDON REPAIR. LENGHTENING at age 6. april 2016 right ankle repair. hysterectomy approx 2014 - Family History Known Family History: Positive: None, Cardiac Disease - [place], Non-Contributory - Social History Alcohol Use: Occasionally Alcohol Amount: "couple times a month" Substance Use Type: None Smoking Status (MU): Heavy Every Day Tobacco Smoker Type: Cigarettes Amount Used/How Often: 1 PPD Length of Time of Smoking/Using Tobacco: 20 years Have You Smoked in the Last Year: Yes Household Exposure Type: Cigarettes Review of Systems All Other Systems Reviewed And Are Negative: Yes Constitutional: Positive: Chills ENT: Positive: Sore Throat Respiratory: Positive: Shortness Of Breath, Cough - mild Cardiovascular: Positive: Negative Gastrointestinal: Positive: Negative Musculoskeletal: Positive: Negative Neurological/Mental Status: Positive: Negative Physical Exam - Summary Physical Exam Summary: Vital Signs Reviewed: Yes A+Ox3, no distress Eyes: Conjunctiva Clear ENT: Hearing grossly normal, TM x 2 clear, moist, uvula midline, no exudate, no erythema Neck: Positive: Supple Respiratory: Positive: No respiratory distress, No accessory muscle use + CTA throughout no w/r Cardiovascular: RRR nl s1, s2 no m/r Musculoskeletal Exam: WILKINS x 4 without difficulty Neurological: Positive: Alert Psychological: Positive: age appropriate behavior Skin: Positive: no rash, no ecchymosis Vital Signs: Initial Vital Signs Temp 97.6 F 06/18/19 08:54 Pulse 103 06/18/19 08:54 Resp 16 06/18/19 08:54 BP 122/83 06/18/19 08:54 Pulse Ox 96 06/18/19 08:54 Lab Results 06/18/19 Range/Units 09:09 Influenza A (Rapid) Negative (Negative) Influenza B (Rapid) Negative (Negative) Flu Course/Dx - Course Course Of Treatment: Patient declined breathing treatment. She can speak in full sentences and is not tachypneic. Lung sounds clear. I provided patient with prescription for inhaler and instructed to refrain from smoking while continuing symptomatic treatment. Patient voiced understanding and agreed with treatment plan. - Differential Dx/Diagnosis Differential Diagnosis/HQI/PQRI: Influenza, Upper Respiratory Infection Provider Diagnosis: Flu-like symptoms Discharge ED - Sign-Out/Discharge Documenting (check all that apply): Patient Departure All imaging exams completed and their final reports reviewed: No Studies - Discharge Plan Condition: Stable Disposition: HOME Prescriptions: Albuterol HFA INHALER* [Ventolin HFA Inhaler*] 1 - 2 puff INH Q6H PRN #1 mdi PRN Reason: Sob/Wheezing Patient Education Materials: Viral Syndrome (ED) Referrals: Etahn Juarez MD [Primary Care Provider] - If Needed Additional Instructions: Your flu test was negative today. Your symptoms are most likely caused by a virus and should resolve without treatment. Use the inhaler as directed for your shortness of breath. You may continue to take over the counter cold and flu medications for your symptoms. Get plenty of rest and fluids. Follow up with your primary care provider if your symptoms worsen or do not improve within 7-10 days. Go to the emergency room with any new or worsening symptoms. - Billing Disposition and Condition Condition: STABLE Disposition: Home
== END 2019-06-18 10:30 | disposition home or self-care (01) ==
LOC: UCEAST 08:46
DX: J02.9 Acute pharyngitis, unspecified (principal); R06.02 Shortness of breath; R05 Cough; I10 Essential (primary) hypertension; F17.210 Nicotine dependence, cigarettes, uncomplicated; Z88.5 Allergy status to narcotic agent; Z79.899 Other long term (current) drug therapy
CPT/HCPCS: 99212; G0463

== ENCOUNTER 2024-01-16 21:34 | Observation (INO) ==
[2024-01-16 22:24] LABS: ABS Basophils 0.1 10^3/uL (0.0-0.1); ABS Eosinophils 0.3 10^3/uL (0.0-0.5); ABS Lymphocytes 4.9 10^3/uL (1.0-4.8); ABS Monocytes 0.9 10^3/uL (0.0-0.9); ABS Neutrophils 8.3 10^3/uL (1.5-7.6); ABS Nucleated RBC 0.01 10^3/ul; Eosinophil % 2.1 %; Hematocrit 41.7 % (35-45); Mean Corpuscular Hemoglobin 29.2 pg (27-33); Mean Corpuscular Hgb Conc 33.4 g/dL (31-36); Mean Corpuscular Volume 87.5 fL (80-97); Nucleated Red Blood Cells % 0.1 %/100WBC (0.0-0.8); Platelet Count 341 10^3/uL (150-450); Red Blood Count 4.77 10^6/uL (3.63-4.92); Red Cell Distribution Width 14.3 % (12-17); White Blood Count 14.5 10^3/uL (3.8-11.8)
[2024-01-16 22:42] LABS: Urine Appearance Clear; Urine Bilirubin Negative (Negative); Urine Blood Negative (Negative); Urine Color Light-Yellow; Urine Glucose Negative (Negative); Urine Ketones Negative (Negative); Urine Nitrite Negative (Negative); Urine Protein Trace (Negative); Urine Specific Gravity 1.016 (1.002-1.030); Urine Urobilinogen Negative (Negative)
[2024-01-16] MEDS: Labetalol IV 5 MG/ML 20 ml VIAL IV PUSH ONE (22:42)
[2024-01-16 22:54] LABS: Albumin 4.2 g/dL (3.2-5.2); Albumin/Globulin Ratio 1.6 (1-3); Calcium 9.4 mg/dL (8.6-10.3); Creatinine, Serum 0.64 mg/dL (0.51-0.95); Globulin 2.7 g/dL (2-4); Potassium 3.9 mmol/L (3.5-5.0); Total Bilirubin 0.3 mg/dL (0.2-1.0); Total Protein 6.9 g/dL (6.4-8.9); eGFR CKD-EPI 108.3 (>60)
[2024-01-16 23:26] LABS: High Sensitivity Troponin 1 Hr 8 pg/mL (<15)
[2024-01-17] MEDS ORDERED: Sulfur Hexaflouride MICROSPHR 25 MG VIAL IV PRN (02:48)
[2024-01-17 04:42] LABS: Hematocrit 39.4 % (35-45); Hemoglobin 13.2 g/dL (11.5-14.3); Mean Corpuscular Hemoglobin 29.2 pg (27-33); Mean Corpuscular Hgb Conc 33.5 g/dL (31-36); Mean Corpuscular Volume 87.2 fL (80-97); Mean Platelet Volume 7.8 fL (7.5-11.2); Platelet Count 290 10^3/uL (150-450); Red Blood Count 4.52 10^6/uL (3.63-4.92); Red Cell Distribution Width 14.4 % (12-17); White Blood Count 11.1 10^3/uL (3.8-11.8)
[2024-01-17] MEDS: Aspirin EC 81 mg TAB.EC (enteric coated) PO SCH (08:02)
[2024-01-17] MEDS ORDERED: Regadenoson 0.4 MG/5 ML SYRINGE ONE (09:21)
[2024-01-17] MEDS ORDERED: Aminophylline 25 MG/ML VIAL ONE (09:21)
[2024-01-17 11:05] VITALS: BP 169/99
== END 2024-01-17 14:48 | disposition home or self-care (01) ==
LOC: EDHOLD 21:34 → ED 21:34 → SUATTDRO 01-17 02:45 → MEDTELE 01-17 05:02
PROVIDERS: ADMIT Student in an Organized Health Care Education/Training Program; ATTEND Internal Medicine